=== PATIENT | male | born 1975 | race African-American/Black ===

== ENCOUNTER 2016-09-13 09:04 | Inpatient (IN) | payer OTHER ==
[2016-09-13 09:47] VITALS: BMI 26.6
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
[2016-09-13] MEDS ORDERED: hydrOXYzine PAMOATE 50 MG CAPSULE (FP) PO PRN (12:13)
[2016-09-13] MEDS ORDERED: chlordiazePOXIDE HCL 25 MG CAPSULE PO PRN (12:13)
[2016-09-13] MEDS ORDERED: NICOTINE POLACRILEX 2 MG GUM BUC PRN (12:13)
[2016-09-13] MEDS ORDERED: MAGNESIUM CITRATE 300 ML BOTTLE PO PRN (12:13)
[2016-09-13] MEDS ORDERED: MAGNESIUM HYDROX 2400MG/30ML ORAL SUSPENSION 30 ML CUP PO PRN (12:13)
[2016-09-13] MEDS ORDERED: MENTHOL/PHENOL 1 EACH UD MM PRN (12:13)
[2016-09-13] MEDS ORDERED: IBUPROFEN 400 MG TABLET (FP) PO PRN (12:13)
[2016-09-13] MEDS ORDERED: guaiFENesin/D-METHORPHAN HB 10 ML UNIT-DOSE CUPS PO PRN (12:13)
[2016-09-13] MEDS ORDERED: ACETAMINOPHEN 325 MG TABLET (FP) PO PRN (12:13)
[2016-09-13] MEDS ORDERED: MAG HYDROX/AL HYDROX/SIMETH 30 ML UNIT-DOSE CUP PO PRN (12:13)
[2016-09-13] MEDS ORDERED: P-EPHED 60MG/TRIPROLIDI 2.5MG TABLET PO PRN (12:13)
[2016-09-13] MEDS ORDERED: LOPERAMIDE HCL 2 MG CAPSULE PO PRN (12:13)
[2016-09-13] MEDS ORDERED: chlordiazePOXIDE HCL 25 MG CAPSULE PO ONE (12:20)
[2016-09-13] MEDS: NICOTINE 21 MG/24 HOURS TOPICAL PATCH TD SCH (13:00)
--- NOTE | 2016-09-13 17:15 | EKG ---
Test Reason : Blood Pressure : / mmHG Vent. Rate : 069 BPM Atrial Rate : 069 BPM P-R Int : 160 ms QRS Dur : 088 ms QT Int : 434 ms P-R-T Axes : 030 004 024 degrees QTc Int : 465 ms NORMAL SINUS RHYTHM MODERATE VOLTAGE CRITERIA FOR LVH, MAY BE NORMAL VARIANT ST ELEVATION, CONSIDER EARLY REPOLARIZATION, PERICARDITIS, OR INJURY NONSPECIFIC T WAVE ABNORMALITY PROLONGED QT ABNORMAL ECG NO PREVIOUS ECGS AVAILABLE Confirmed by ALVARO TODD, CHANO ([id number]) on 09/13/2016 5:15:38 PM Referred By: Jeremy Carrera Confirmed By:CHANO JOHN MD
[2016-09-13] MEDS: chlordiazePOXIDE HCL 25 MG CAPSULE PO SCH ×2 (17:31→22:53)
[2016-09-13 18:49] LABS: URINE APPEARANCE CLEAR; URINE BILIRUBIN NEGATIVE (NEGATIVE); URINE BLOOD NEGATIVE (NEGATIVE); URINE COLOR YELLOW; URINE GLUCOSE (UA) NEGATIVE (NEGATIVE); URINE KETONE NEGATIVE (NEGATIVE); URINE LEUK ESTERASE NEGATIVE (NEGATIVE); URINE NITRITE NEGATIVE (NEGATIVE); URINE UROBILINOGEN NEGATIVE E.U./dl (0.2-1.0)
[2016-09-13 19:03] LABS: URINE PROTEIN 1+ (NEGATIVE)
[2016-09-13 20:03] LABS: URINE BACTERIA RARE /hpf (NONE SEEN); URINE MUCUS RARE; URINE RBC 1 /hpf (0-3); URINE WBC 1 /hpf (3-5)
[2016-09-13] MEDS: THIAMINE HCL 100 MG TABLET (FP) PO SCH (22:53)
[2016-09-13] MEDS: diphenhydrAMINE HCL 50 MG CAPSULE PO PRN (22:54)
[2016-09-14] MEDS: chlordiazePOXIDE HCL 25 MG CAPSULE PO SCH ×4 (05:37→23:00)
--- NOTE | 2016-09-14 09:17 | PN ---
S CIWA - CIWA Score Nausea/Vomitin-No Nausea/No Vomiting Muscle Tremors: 4-Moderate,w/Arms Extend Anxiety: 4-Mod. Anxious/Guarded Agitation: 3 Paroxysmal Sweats: 3 Orientation: 0-Oriented Tacttile Disturbances: 0-None Auditory Disturbances: 0-None Visual Disturbances: 0-None Headache: 0-None Present CIWA-Ar Total Score: 14 BHS Progress Note (SOAP) Subjective: Sweating,interrupted sleep,anxiety,tremors,restless. Objective: 09/14/16 09:17 Vital Signs - 8 hr 09/14/16 09/14/16 03:30 06:46 Temperature 96.7 F L Pulse Rate 72 Respiratory 18 18 Rate Blood Pressure 112/77 Laboratory Tests 09/13/16 18:00 Urine Color Yellow Urine Appearance Clear Urine pH 5.0 Ur Specific [place] 1.019 Urine Protein 1+ H Urine Glucose (UA) Negative Urine Ketones Negative Urine Blood Negative Urine Nitrite Negative Urine Bilirubin Negative Urine Urobilinogen Negative Ur Leukocyte Esterase Negative Urine RBC 1 Urine WBC 1 Ur Epithelial Cells Rare Urine Bacteria Rare Urine Mucus Rare Assessment: 09/14/16 09:17 Withdrawal sx. Plan: Continue detox
--- NOTE | 2016-09-14 09:55 | CONSULT ---
[facility] Psychiatric Consult - Data Date of interview: 09/14/16 Admission source: [facility]
[2016-09-14 10:18] LABS: MCH 29.6 pg (25.7-33.7); MCHC 32.7 g/dl (32.0-35.9); MEAN CELL VOLUME 90.7 fl (80-96); MEAN PLT VOLUME 12.4 fl (7.5-11.1); RDW 17.5 % (11.9-15.9); WHITE BLOOD COUNT 6.3 K/mm3 (4.0-10.0)
[2016-09-14] MEDS: PRENATAL VITAMINS W/ FOLIC ACID TABLET (FP) PO SCH (10:44)
[2016-09-14] MEDS: NICOTINE 21 MG/24 HOURS TOPICAL PATCH TD SCH (10:44)
[2016-09-14 10:52] LABS: PLATELET COMMENT2 NO CLUMPING NOTED; PLATELET COUNT 170 K/MM3 (134-434); PLATELET ESTIMATE ADEQUATE (NORMAL)
[2016-09-14 12:03] LABS: ALBUMIN 3.6 g/dl (3.4-5.0); ALK PHOS 121 U/L (45-117); ANION GAP 11 (8-16); BILIRUBIN,TOTAL 0.4 mg/dL (0.2-1.0); CALCIUM 8.9 mg/dL (8.5-10.1); CO2 25 mmol/L (21-32); CREATININE 1.1 mg/dL (0.7-1.3); GLUCOSE,RANDOM 88 mg/dL (74-106); SGOT/AST 32 U/L (15-37); SGPT/ALT 46 U/L (12-78); TOT PROT 8.6 g/dl (6.4-8.2)
[2016-09-14] MEDS: THIAMINE HCL 100 MG TABLET (FP) PO SCH (23:00)
[2016-09-14] MEDS: diphenhydrAMINE HCL 50 MG CAPSULE PO PRN (23:01)
[2016-09-15] MEDS: chlordiazePOXIDE HCL 25 MG CAPSULE PO SCH ×2 (05:30→10:38)
--- NOTE | 2016-09-15 10:00 | PN ---
S CIWA - CIWA Score Nausea/Vomitin-No Nausea/No Vomiting Muscle Tremors: 3 Anxiety: 3 Agitation: 4-Moderately Restless Paroxysmal Sweats: 3 Orientation: 0-Oriented Tacttile Disturbances: 0-None Auditory Disturbances: 0-None Visual Disturbances: 0-None Headache: 0-None Present CIWA-Ar Total Score: 13 BHS Progress Note (SOAP) Subjective: Sweating,interrupted sleep,restless,tremors,anxiety. Objective: 09/15/16 09:59 Vital Signs - 8 hr 09/15/16 09/15/16 09/15/16 03:30 06:35 09:57 Temperature 96.9 F L 98.1 F Pulse Rate 72 69 Respiratory 18 18 18 Rate Blood Pressure 139/102 134/91 Laboratory Tests 09/13/16 09/14/16 09/14/16 18:00 06:00 06:00 WBC 6.3 D RBC 4.49 Hgb 13.3 Hct 40.7 MCV 90.7 MCHC 32.7 RDW 17.5 H Plt Count 170 D MPV 12.4 H Platelet Estimate Adequate Platelet Comment No clumping noted Sodium 142 Potassium 4.1 Chloride 106 Carbon Dioxide 25 Anion Gap 11 BUN 8 D Creatinine 1.1 Creat Clearance w eGFR > 60 Random Glucose 88 Calcium 8.9 Total Bilirubin 0.4 D AST 32 ALT 46 Alkaline Phosphatase 121 H D Total Protein 8.6 H D Albumin 3.6 Urine Color Yellow Urine Appearance Clear Urine pH 5.0 Ur Specific [place] 1.019 Urine Protein 1+ H Urine Glucose (UA) Negative Urine Ketones Negative Urine Blood Negative Urine Nitrite Negative Urine Bilirubin Negative Urine Urobilinogen Negative Ur Leukocyte Esterase Negative Urine RBC 1 Urine WBC 1 Ur Epithelial Cells Rare Urine Bacteria Rare Urine Mucus Rare RPR Titer 09/14/16 06:00 WBC RBC Hgb Hct MCV MCHC RDW Plt Count MPV Platelet Estimate Platelet Comment Sodium Potassium Chloride Carbon Dioxide Anion Gap BUN Creatinine Creat Clearance w eGFR Random Glucose Calcium Total Bilirubin AST ALT Alkaline Phosphatase Total Protein Albumin Urine Color Urine Appearance Urine pH Ur Specific [place] Urine Protein Urine Glucose (UA) Urine Ketones Urine Blood Urine Nitrite Urine Bilirubin Urine Urobilinogen Ur Leukocyte Esterase Urine RBC Urine WBC Ur Epithelial Cells Urine Bacteria Urine Mucus RPR Titer Nonreactive labs noted Assessment: 09/15/16 10:00 Withdrawal sx. Plan: Continue detox
[2016-09-15] MEDS: PRENATAL VITAMINS W/ FOLIC ACID TABLET (FP) PO SCH (10:38)
[2016-09-15] MEDS: NICOTINE 21 MG/24 HOURS TOPICAL PATCH TD SCH (10:38)
[2016-09-15] MEDS ORDERED: chlordiazePOXIDE 5 MG CAPSULE PO SCH (17:00)
[2016-09-15 19:25] VITALS: BP 143/98; PULSE 81; TEMP 98.7
--- NOTE | 2016-09-16 08:37 | DS ---
[facility] Detox Discharge Summary Admission Date: 09/13/16 Discharge Date: 09/15/16 - History Present History: Alcohol Dependence, Cocaine Dependence Pertinent Past History: HIV disease - Physical Exam Results Vital Signs: Vital Signs Temperature 98.7 F 09/15/16 19:24 Pulse Rate 81 09/15/16 19:24 Respiratory Rate 19 09/15/16 19:24 Blood Pressure 143/98 09/15/16 19:24 O2 Sat by Pulse Oximetry (%) Pertinent Admission Physical Exam Findings: Withdrawal sx. Laboratory Last Values WBC 6.3 K/mm3 (4.0-10.0) D 09/14/16 06:00 RBC 4.49 M/mm3 (4.00-5.60) 09/14/16 06:00 Hgb 13.3 GM/dL (11.7-16.9) 09/14/16 06:00 Hct 40.7 % (35.4-49) 09/14/16 06:00 MCV 90.7 fl (80-96) 09/14/16 06:00 MCHC 32.7 g/dl (32.0-35.9) 09/14/16 06:00 RDW 17.5 % (11.9-15.9) H 09/14/16 06:00 Plt Count 170 K/MM3 (134-434) D 09/14/16 06:00 MPV 12.4 fl (7.5-11.1) H 09/14/16 06:00 Platelet Estimate Adequate (NORMAL) 09/14/16 06:00 Platelet Comment Few giant plts 09/14/16 06:00 Platelet Comment No clumping noted 09/14/16 06:00 Sodium 142 mmol/L (136-145) 09/14/16 06:00 Potassium 4.1 mmol/L (3.5-5.1) 09/14/16 06:00 Chloride 106 mmol/L (98-107) 09/14/16 06:00 Carbon Dioxide 25 mmol/L (21-32) 09/14/16 06:00 Anion Gap 11 (8-16) 09/14/16 06:00 BUN 8 mg/dL (7-18) D 09/14/16 06:00 Creatinine 1.1 mg/dL (0.7-1.3) 09/14/16 06:00 Creat Clearance w eGFR > 60 (>60) 09/14/16 06:00 Random Glucose 88 mg/dL (74-106) 09/14/16 06:00 Calcium 8.9 mg/dL (8.5-10.1) 09/14/16 06:00 Total Bilirubin 0.4 mg/dL (0.2-1.0) D 09/14/16 06:00 AST 32 U/L (15-37) 09/14/16 06:00 ALT 46 U/L (12-78) 09/14/16 06:00 Alkaline Phosphatase 121 U/L (45-117) H D 09/14/16 06:00 Total Protein 8.6 g/dl (6.4-8.2) H D 09/14/16 06:00 Albumin 3.6 g/dl (3.4-5.0) 09/14/16 06:00 Urine Color Yellow 09/13/16 18:00 Urine Appearance Clear 09/13/16 18:00 Urine pH 5.0 (5.0-8.0) 09/13/16 18:00 Ur Specific [place] 1.019 (1.001-1.035) 09/13/16 18:00 Urine Protein 1+ (NEGATIVE) H 09/13/16 18:00 Urine Glucose (UA) Negative (NEGATIVE) 09/13/16 18:00 Urine Ketones Negative (NEGATIVE) 09/13/16 18:00 Urine Blood Negative (NEGATIVE) 09/13/16 18:00 Urine Nitrite Negative (NEGATIVE) 09/13/16 18:00 Urine Bilirubin Negative (NEGATIVE) 09/13/16 18:00 Urine Urobilinogen Negative E.U./dl (0.2-1.0) 09/13/16 18:00 Ur Leukocyte Esterase Negative (NEGATIVE) 09/13/16 18:00 Urine RBC 1 /hpf (0-3) 09/13/16 18:00 Urine WBC 1 /hpf (3-5) 09/13/16 18:00 Ur Epithelial Cells Rare /hpf (FEW) 09/13/16 18:00 Urine Bacteria Rare /hpf (NONE SEEN) 09/13/16 18:00 Urine Mucus Rare 09/13/16 18:00 RPR Titer Nonreactive (NONREACTIVE) 09/14/16 06:00 labs noted - Treatment Patient has Accepted a Rehab Referral to: [facility] - Medication Discharge Medications: Ambulatory Orders NK [No Known Home Medication] 09/13/16 - Diagnosis (1) Alcohol dependence with uncomplicated withdrawal Status: Acute (2) Cocaine dependence Status: Acute (3) Nicotine dependence Status: Chronic Qualifiers: Nicotine product type: cigarettes Substance use status: uncomplicated Qualified Code(s): F17.210 - Nicotine dependence, cigarettes, uncomplicated (4) HIV disease Status: Chronic - AMA Did Patient Leave Against Medical Advice: Yes
[2016-09-16] MEDS ORDERED: chlordiazePOXIDE HCL 10 MG CAPSULE PO SCH (17:00)
== END 2016-09-15 19:52 | disposition left against medical advice (07) | DRG 770 ==
LOC: YASAS 09:04 → Y3N 10:55
PROVIDERS: ADMIT Internal Medicine; ATTEND Internal Medicine
PROC: HZ2ZZZZ Detoxification Services for Substance Abuse Treatment (ICD-10-PCS; principal; 2016-09-15)
DX: F10.230 Alcohol dependence with withdrawal, uncomplicated (principal); F14.20 Cocaine dependence, uncomplicated; F17.210 Nicotine dependence, cigarettes, uncomplicated; Z21 Asymptomatic human immunodeficiency virus [HIV] infection status
CPT/HCPCS: 36415; 80053; 81003; 81015; 85027; 86593; 93005; 93010

== ENCOUNTER 2020-11-28 13:03 | Inpatient (IN) | payer OTHER ==
[2020-11-28 14:10] VITALS: BMI 26.9
[2020-11-28] MEDS ORDERED: MAG HYDROX/AL HYDROX/SIMETH 30 ML UNIT-DOSE CUP PO PRN (15:42)
[2020-11-28] MEDS ORDERED: diazePAM 5 MG TABLET PO PRN (15:42)
[2020-11-28] MEDS ORDERED: ONDANSETRON *ODT* 4 MG TABLET SL PRN (15:42)
[2020-11-28] MEDS ORDERED: MENTHOL/PHENOL 1 EACH UD MM PRN (15:42)
[2020-11-28] MEDS ORDERED: BISMUTH SUBSALICYLATE 524 MG/30 ML PO PRN (15:42)
[2020-11-28] MEDS ORDERED: ACETAMINOPHEN 325 MG TABLET (FP) PO PRN ×2 (15:42)
[2020-11-28] MEDS ORDERED: METHOCARBAMOL 500 MG TABLET PO PRN (15:42)
[2020-11-28] MEDS ORDERED: MAGNESIUM CITRATE 300 ML BOTTLE PO PRN (15:42)
[2020-11-28] MEDS ORDERED: NICOTINE POLACRILEX 2 MG GUM BUC PRN (15:42)
[2020-11-28] MEDS ORDERED: MAGNESIUM HYDROX 2400MG/30ML ORAL SUSPENSION 30 ML CUP PO PRN (15:42)
[2020-11-28] MEDS ORDERED: IBUPROFEN 400 MG TABLET (FP) PO PRN (15:42)
[2020-11-28] MEDS: PRENATAL VITAMINS W/ FOLIC ACID TABLET (FP) PO SCH (17:52)
[2020-11-28] MEDS: hydrOXYzine PAMOATE 25 MG CAPSULE (FP) PO SCH ×2 (17:52→22:38)
[2020-11-28] MEDS: NICOTINE 21 MG/24 HOURS TOPICAL PATCH TD SCH (17:52)
[2020-11-28] MEDS: diazePAM 5 MG TABLET PO SCH ×2 (17:53→22:40)
[2020-11-28] MEDS: VITAMINS A AND D TOPICAL OINTMENT 60 GM TUBE TP SCH (18:36)
[2020-11-28] MEDS: QUEtiapine FUMARATE 50 MG TABLET PO SCH (22:38)
[2020-11-28] MEDS: MELATONIN 5 MG TABLETS PO SCH (22:38)
[2020-11-28] MEDS: THIAMINE HCL 100 MG TABLET (FP) PO SCH (22:39)
[2020-11-29] MEDS: VITAMINS A AND D TOPICAL OINTMENT 60 GM TUBE TP SCH ×5 (00:48→23:39)
[2020-11-29] MEDS: hydrOXYzine PAMOATE 25 MG CAPSULE (FP) PO SCH ×2 (05:48→10:32)
[2020-11-29] MEDS: diazePAM 5 MG TABLET PO SCH ×4 (05:49→23:05)
[2020-11-29] MEDS: NICOTINE 21 MG/24 HOURS TOPICAL PATCH TD SCH (10:31)
[2020-11-29] MEDS: PRENATAL VITAMINS W/ FOLIC ACID TABLET (FP) PO SCH (10:32)
[2020-11-29] MEDS: amLODIPine BESYLATE 5 MG TABLET (FP) PO SCH (10:32)
[2020-11-29] MEDS ORDERED: hydrOXYzine PAMOATE 25 MG CAPSULE (FP) PO PRN (11:15)
[2020-11-29 11:37] LABS: HEMATOCRIT 32.6 % (35.4-49); HEMOGLOBIN 11.1 GM/dL (11.7-16.9); MCH 31.3 pg (25.7-33.7); MCHC 34.1 g/dl (32.0-35.9); MEAN CELL VOLUME 91.8 fl (80-96); MEAN PLT VOLUME 11.4 fl (7.5-11.1); PLATELET COUNT 57 K/MM3 (134-434); RBC 3.55 M/mm3 (4.00-5.60); RDW 15.8 % (11.9-15.9); WHITE BLOOD COUNT 2.6 K/mm3 (4.0-10.0)
[2020-11-29 11:42] LABS: BLOOD UREA NITROGEN 18.2 mg/dL (7-18); CALCIUM 8.3 mg/dL (8.5-10.1)
[2020-11-29 11:43] LABS: BILIRUBIN,TOTAL 0.8 mg/dL (0.2-1); CREATININE 1.1 mg/dL (0.55-1.3); TOT PROT 7.3 g/dl (6.4-8.2)
[2020-11-29] MEDS ORDERED: POTASSIUM CHLORIDE TABS 20 MEQ TABLET.ER (FP) PO ONE (14:05)
[2020-11-29] MEDS: QUEtiapine FUMARATE 50 MG TABLET PO SCH (23:04)
[2020-11-29] MEDS: THIAMINE HCL 100 MG TABLET (FP) PO SCH (23:05)
[2020-11-29] MEDS: MELATONIN 5 MG TABLETS PO SCH (23:05)
[2020-11-30] MEDS: diazePAM 5 MG TABLET PO SCH ×3 (06:28→22:40)
[2020-11-30] MEDS: VITAMINS A AND D TOPICAL OINTMENT 60 GM TUBE TP SCH ×4 (06:29→23:52)
[2020-11-30] MEDS: PRENATAL VITAMINS W/ FOLIC ACID TABLET (FP) PO SCH (09:48)
[2020-11-30] MEDS: NICOTINE 21 MG/24 HOURS TOPICAL PATCH TD SCH (09:48)
[2020-11-30] MEDS: amLODIPine BESYLATE 5 MG TABLET (FP) PO SCH (09:48)
[2020-11-30] MEDS: QUEtiapine FUMARATE 50 MG TABLET PO SCH (22:40)
[2020-11-30] MEDS: MELATONIN 5 MG TABLETS PO SCH (22:40)
[2020-11-30] MEDS: THIAMINE HCL 100 MG TABLET (FP) PO SCH (22:40)
[2020-12-01] MEDS: diazePAM 5 MG TABLET PO SCH ×2 (05:39→17:47)
[2020-12-01] MEDS: VITAMINS A AND D TOPICAL OINTMENT 60 GM TUBE TP SCH ×4 (05:40→23:14)
[2020-12-01 09:53] LABS: HEMATOCRIT 30.4 % (35.4-49); HEMOGLOBIN 10.4 GM/dL (11.7-16.9); MCHC 34.2 g/dl (32.0-35.9); MEAN CELL VOLUME 90.7 fl (80-96); MEAN PLT VOLUME 11.3 fl (7.5-11.1); PLATELET COUNT 46 K/MM3 (134-434); RBC 3.35 M/mm3 (4.00-5.60); RDW 15.3 % (11.9-15.9); WHITE BLOOD COUNT 2.6 K/mm3 (4.0-10.0)
[2020-12-01 09:57] LABS: CALCIUM 8.7 mg/dL (8.5-10.1)
[2020-12-01 09:58] LABS: BLOOD UREA NITROGEN 15.5 mg/dL (7-18)
[2020-12-01 10:01] LABS: BILIRUBIN,TOTAL 0.5 mg/dL (0.2-1); TOT PROT 7.2 g/dl (6.4-8.2)
[2020-12-01] MEDS: NICOTINE 21 MG/24 HOURS TOPICAL PATCH TD SCH (10:06)
[2020-12-01] MEDS: amLODIPine BESYLATE 5 MG TABLET (FP) PO SCH (10:07)
[2020-12-01] MEDS: PRENATAL VITAMINS W/ FOLIC ACID TABLET (FP) PO SCH (10:07)
[2020-12-01 18:21] VITALS: TEMP 97.1
[2020-12-01] MEDS: THIAMINE HCL 100 MG TABLET (FP) PO SCH (22:21)
[2020-12-01] MEDS: QUEtiapine FUMARATE 50 MG TABLET PO SCH (22:21)
[2020-12-01] MEDS: MELATONIN 5 MG TABLETS PO SCH (22:21)
[2020-12-01 22:26] VITALS: BP 136/87; PULSE 103
[2020-12-02] MEDS ORDERED: diazePAM 5 MG TABLET PO ONE (06:00)
[2020-12-02] MEDS: VITAMINS A AND D TOPICAL OINTMENT 60 GM TUBE TP SCH (06:55)
== END 2020-12-02 07:10 | disposition home or self-care (01) | DRG 774 ==
LOC: YASAS 13:03 → Y3N 16:42
PROVIDERS: ADMIT Allergy & Immunology; ATTEND Allergy & Immunology
PROC: HZ2ZZZZ Detoxification Services for Substance Abuse Treatment (ICD-10-PCS; principal; 2020-11-28)
DX: F10.230 Alcohol dependence with withdrawal, uncomplicated (principal); F14.20 Cocaine dependence, uncomplicated; F17.210 Nicotine dependence, cigarettes, uncomplicated; F41.8 Other specified anxiety disorders; F51.02 Adjustment insomnia; B20 Human immunodeficiency virus [HIV] disease; D69.6 Thrombocytopenia, unspecified; D72.819 Decreased white blood cell count, unspecified; I10 Essential (primary) hypertension; K21.9 Gastro-esophageal reflux disease without esophagitis; M41.84 Other forms of scoliosis, thoracic region
CPT/HCPCS: 36415; 80053; 85027; 86780; C9803; U0003; U0005

== ENCOUNTER 2022-01-20 11:22 | Inpatient (IN) | payer OTHER ==
[2022-01-20 13:10] VITALS: BMI 26.6
[2022-01-20] MEDS ORDERED: BENZOCAINE/MENTHOL (CHLORASEPTIC ) LOZENGE MM PRN (14:11)
[2022-01-20] MEDS ORDERED: IBUPROFEN 400 MG TABLET (FP) PO PRN (14:11)
[2022-01-20] MEDS ORDERED: ONDANSETRON *ODT* 4 MG TABLET SL PRN (14:11)
[2022-01-20] MEDS ORDERED: DICYCLOMINE HCL 10 MG CAPSULE PO PRN (14:11)
[2022-01-20] MEDS ORDERED: MAG HYDROX/AL HYDROX/SIMETH 30 ML UNIT-DOSE CUP PO PRN (14:11)
[2022-01-20] MEDS ORDERED: MAGNESIUM CITRATE 300 ML BOTTLE PO PRN (14:11)
[2022-01-20] MEDS ORDERED: METHOCARBAMOL 500 MG TABLET PO PRN (14:11)
[2022-01-20] MEDS ORDERED: MAGNESIUM HYDROX 2400MG/30ML ORAL SUSPENSION 30 ML CUP PO PRN (14:11)
[2022-01-20] MEDS ORDERED: IBUPROFEN 600 MG TABLET (FP) PO PRN (14:11)
[2022-01-20] MEDS ORDERED: NICOTINE 10 MG CARTRIDGE (INHALER) IH PRN (14:11)
[2022-01-20] MEDS ORDERED: LOPERAMIDE HCL 2 MG CAPSULE PO PRN (14:11)
[2022-01-20] MEDS ORDERED: ACETAMINOPHEN 325 MG TABLET (FP) PO PRN ×2 (14:11)
[2022-01-20] MEDS ORDERED: BISMUTH SUBSALICYLATE 524 MG/30 ML PO PRN (14:11)
[2022-01-20] MEDS ORDERED: HYDROCORTISONE 1% TOPICAL OINT 30 GM TUBE TP PRN (14:13)
[2022-01-20] MEDS ORDERED: MINERAL OIL/PETROLAT/WATER TOPICAL CREAM 454 GM JAR TP PRN (14:22)
[2022-01-20] MEDS ORDERED: COLLOIDAL OATMEAL 1 BAR EACH TP PRN (14:22)
[2022-01-20] MEDS ORDERED: LIDOCAINE 5% TOPICAL PATCH TP PRN (14:23)
[2022-01-20] MEDS: hydrOXYzine PAMOATE 25 MG CAPSULE (FP) PO SCH (17:57)
[2022-01-20 21:03] VITALS: RESP 18
[2022-01-20] MEDS: MELATONIN 5 MG TABLETS PO SCH (23:05)
[2022-01-21] MEDS: LIDOCAINE PATCH REMOVAL MC SCH ×2 (04:58→22:45)
[2022-01-21] MEDS: VITAMINS A AND D TOPICAL OINTMENT 60 GM TUBE TP SCH ×4 (04:58→18:03)
[2022-01-21] MEDS: THIAMINE HCL 100 MG TABLET (FP) PO SCH ×2 (04:59→22:45)
[2022-01-21] MEDS: hydrOXYzine PAMOATE 25 MG CAPSULE (FP) PO SCH ×6 (04:59→22:45)
[2022-01-21 09:22] LABS: HEMATOCRIT 29.4 % (35.4-49); HEMOGLOBIN 10.2 GM/dL (11.7-16.9); MCH 30.3 pg (25.7-33.7); MCHC 34.5 g/dl (32.0-35.9); MEAN CELL VOLUME 87.8 fl (80-96); MEAN PLT VOLUME 12.4 fl (7.5-11.1); PLATELET COUNT 51 10^3/uL (134-434); RBC 3.35 M/mm3 (4.00-5.60); RDW 19.8 % (11.9-15.9)
[2022-01-21 09:28] LABS: ALBUMIN 3.1 g/dl (3.4-5.0); CALCIUM 8.4 mg/dL (8.5-10.1)
[2022-01-21 09:30] LABS: CREATININE 1.1 mg/dL (0.55-1.3)
[2022-01-21 09:31] LABS: WHITE BLOOD COUNT 1.9 K/mm3 (4.0-10.0)
[2022-01-21 09:32] LABS: BILIRUBIN,TOTAL 0.4 mg/dL (0.2-1)
[2022-01-21 09:33] LABS: TOT PROT 7.2 g/dl (6.4-8.2)
[2022-01-21] MEDS ORDERED: ABACAVIR/DOLUTEGRAVIR/LAMIVUDI (TRIUMEQ) TABLET -NF PO SCH (10:00)
[2022-01-21] MEDS: PRENATAL VITAMINS W/ FOLIC ACID TABLET (FP) PO SCH (10:48)
[2022-01-21] MEDS ORDERED: chlordiazePOXIDE HCL 25 MG CAPSULE PO PRN (12:21)
[2022-01-21] MEDS: amLODIPine BESYLATE 5 MG TABLET (FP) PO SCH (12:41)
[2022-01-21] MEDS: HYDROCORTISONE 1% TOPICAL OINT 30 GM TUBE TP SCH ×2 (12:45→22:45)
[2022-01-21] MEDS: chlordiazePOXIDE HCL 25 MG CAPSULE PO SCH ×2 (17:59→22:46)
[2022-01-21] MEDS: CALCIUM CARBONATE 650 MG TABLET PO SCH (22:44)
[2022-01-21] MEDS: MELATONIN 5 MG TABLETS PO SCH (22:45)
[2022-01-22] MEDS: VITAMINS A AND D TOPICAL OINTMENT 60 GM TUBE TP SCH ×4 (05:14→18:13)
[2022-01-22] MEDS: chlordiazePOXIDE HCL 25 MG CAPSULE PO SCH ×4 (05:14→22:31)
[2022-01-22] MEDS: hydrOXYzine PAMOATE 25 MG CAPSULE (FP) PO SCH ×5 (05:15→22:34)
[2022-01-22 09:52] LABS: HEMATOCRIT 30.4 % (35.4-49); HEMOGLOBIN 10.2 GM/dL (11.7-16.9); MCH 29.9 pg (25.7-33.7); MCHC 33.6 g/dl (32.0-35.9); MEAN PLT VOLUME 12.7 fl (7.5-11.1); PLATELET COUNT 57 10^3/uL (134-434); RBC 3.41 M/mm3 (4.00-5.60); RDW 19.9 % (11.9-15.9); WHITE BLOOD COUNT 2.2 K/mm3 (4.0-10.0)
[2022-01-22] MEDS: PRENATAL VITAMINS W/ FOLIC ACID TABLET (FP) PO SCH (10:12)
[2022-01-22] MEDS: amLODIPine BESYLATE 5 MG TABLET (FP) PO SCH (10:12)
[2022-01-22] MEDS: CALCIUM CARBONATE 650 MG TABLET PO SCH ×2 (10:12→22:33)
[2022-01-22] MEDS: ABACAVIR/DOLUTEGRAVIR/LAMIVUDI (TRIUMEQ) TABLET -NF PO SCH (10:13)
[2022-01-22] MEDS: HYDROCORTISONE 1% TOPICAL OINT 30 GM TUBE TP SCH ×2 (10:15→22:30)
[2022-01-22 10:21] LABS: ANISOCYTOSIS 1+; MACROCYTOSIS 1+
[2022-01-22] MEDS: FERROUS SO4 325 MG TABLET (FP) PO SCH ×2 (12:26→17:47)
[2022-01-22] MEDS ORDERED: SULFAMETHOXAZOLE/TRIMETHOPRIM 800MG/160MG D.S. TABLET PO SCH (14:14)
[2022-01-22] MEDS: MELATONIN 5 MG TABLETS PO SCH (22:34)
[2022-01-22] MEDS: LIDOCAINE PATCH REMOVAL MC SCH (22:34)
[2022-01-22] MEDS: THIAMINE HCL 100 MG TABLET (FP) PO SCH (22:35)
[2022-01-23] MEDS: VITAMINS A AND D TOPICAL OINTMENT 60 GM TUBE TP SCH ×4 (00:55→17:38)
[2022-01-23] MEDS: hydrOXYzine PAMOATE 25 MG CAPSULE (FP) PO SCH ×5 (05:29→22:55)
[2022-01-23] MEDS: chlordiazePOXIDE HCL 25 MG CAPSULE PO SCH ×4 (05:29→22:56)
[2022-01-23] MEDS: PRENATAL VITAMINS W/ FOLIC ACID TABLET (FP) PO SCH (10:26)
[2022-01-23] MEDS: CALCIUM CARBONATE 650 MG TABLET PO SCH ×2 (10:27→22:55)
[2022-01-23] MEDS: FERROUS SO4 325 MG TABLET (FP) PO SCH ×3 (10:27→17:36)
[2022-01-23] MEDS: amLODIPine BESYLATE 5 MG TABLET (FP) PO SCH (10:27)
[2022-01-23] MEDS: HYDROCORTISONE 1% TOPICAL OINT 30 GM TUBE TP SCH ×2 (10:28→22:55)
[2022-01-23] MEDS: ABACAVIR/DOLUTEGRAVIR/LAMIVUDI (TRIUMEQ) TABLET -NF PO SCH (10:28)
[2022-01-23] MEDS: LIDOCAINE PATCH REMOVAL MC SCH (21:55)
[2022-01-23] MEDS: THIAMINE HCL 100 MG TABLET (FP) PO SCH (22:55)
[2022-01-23] MEDS: MELATONIN 5 MG TABLETS PO SCH (22:55)
[2022-01-24] MEDS ORDERED: chlordiazePOXIDE HCL 10 MG CAPSULE PO PRN
[2022-01-24] MEDS: VITAMINS A AND D TOPICAL OINTMENT 60 GM TUBE TP SCH ×2 (01:28→06:31)
[2022-01-24] MEDS ORDERED: chlordiazePOXIDE HCL 10 MG CAPSULE PO SCH (05:00)
[2022-01-24] MEDS: hydrOXYzine PAMOATE 25 MG CAPSULE (FP) PO SCH (05:21)
[2022-01-24 08:57] VITALS: BP 124/82; PULSE 95; TEMP 98
[2022-01-25] MEDS ORDERED: chlordiazePOXIDE HCL 10 MG CAPSULE PO SCH (05:00)
[2022-01-26] MEDS ORDERED: chlordiazePOXIDE HCL 10 MG CAPSULE PO ONE (05:00)
== END 2022-01-24 10:02 | disposition home or self-care (01) | DRG 774 ==
LOC: YASAS 11:22 → Y3N 15:23
PROVIDERS: ADMIT Allergy & Immunology; ATTEND Surgery
PROC: HZ2ZZZZ Detoxification Services for Substance Abuse Treatment (ICD-10-PCS; principal; 2022-01-20)
DX: F10.230 Alcohol dependence with withdrawal, uncomplicated (principal); F14.20 Cocaine dependence, uncomplicated; F17.210 Nicotine dependence, cigarettes, uncomplicated; I10 Essential (primary) hypertension; D64.9 Anemia, unspecified; L40.9 Psoriasis, unspecified; Z21 Asymptomatic human immunodeficiency virus [HIV] infection status; R63.4 Abnormal weight loss; M41.34 Thoracogenic scoliosis, thoracic region; E83.51 Hypocalcemia; D61.818 Other pancytopenia; R77.0 Abnormality of albumin; K21.9 Gastro-esophageal reflux disease without esophagitis; Z91.013 Allergy to seafood
CPT/HCPCS: 36415; 80053; 82607; 82728; 82746; 83540; 83550; 85025; 85027; 86780; 87811; 93005; 93010; C9803-CS; U0003; U0005

== ENCOUNTER 2022-05-05 12:37 | Inpatient (IN) | payer OTHER ==
[2022-05-05 13:04] VITALS: BMI 23.9
[2022-05-05] MEDS ORDERED: MAG HYDROX/AL HYDROX/SIMETH 30 ML UNIT-DOSE CUP PO PRN (13:29)
[2022-05-05] MEDS ORDERED: ONDANSETRON *ODT* 4 MG TABLET SL PRN (13:29)
[2022-05-05] MEDS ORDERED: DICYCLOMINE HCL 10 MG CAPSULE PO PRN (13:29)
[2022-05-05] MEDS ORDERED: LORazepam 1 MG TABLET PO PRN (13:29)
[2022-05-05] MEDS ORDERED: BISMUTH SUBSALICYLATE 524 MG/30 ML PO PRN (13:29)
[2022-05-05] MEDS ORDERED: IBUPROFEN 600 MG TABLET (FP) PO PRN (13:29)
[2022-05-05] MEDS ORDERED: NICOTINE 10 MG CARTRIDGE (INHALER) IH PRN (13:29)
[2022-05-05] MEDS ORDERED: NALOXONE HCL (KLOXXADO) 8 MG SPRAY NS PRN (13:29)
[2022-05-05] MEDS ORDERED: MAGNESIUM HYDROX 2400MG/30ML ORAL SUSPENSION 30 ML CUP PO PRN (13:29)
[2022-05-05] MEDS ORDERED: BENZOCAINE/MENTHOL (CHLORASEPTIC ) LOZENGE MM PRN (13:29)
[2022-05-05] MEDS ORDERED: IBUPROFEN 400 MG TABLET (FP) PO PRN (13:29)
[2022-05-05] MEDS ORDERED: LOPERAMIDE HCL 2 MG CAPSULE PO PRN (13:29)
[2022-05-05] MEDS ORDERED: ACETAMINOPHEN 325 MG TABLET (FP) PO PRN ×2 (13:29)
[2022-05-05] MEDS ORDERED: LORazepam 2 MG TABLET PO ONE (13:29)
[2022-05-05] MEDS ORDERED: amLODIPine BESYLATE 5 MG TABLET (FP) PO SCH (13:45)
[2022-05-05] MEDS: ABACAVIR/DOLUTEGRAVIR/LAMIVUDI (TRIUMEQ) TABLET -NF PO SCH (13:45)
[2022-05-05] MEDS: SULFAMETHOXAZOLE/TRIMETHOPRIM 800MG/160MG D.S. TABLET PO SCH (14:00)
[2022-05-05] MEDS: METHOCARBAMOL 500 MG TABLET PO PRN (17:37)
[2022-05-05] MEDS: FERROUS SO4 325 MG TABLET (FP) PO SCH (17:37)
[2022-05-05] MEDS: hydrOXYzine PAMOATE 25 MG CAPSULE (FP) PO PRN ×2 (17:37→23:04)
[2022-05-05] MEDS: LORazepam 2 MG TABLET PO SCH ×2 (17:38→23:04)
[2022-05-05] MEDS: DOXYCYCLINE HYCLATE 100 MG CAPSULE PO SCH (20:04)
[2022-05-05] MEDS: THIAMINE HCL 100 MG TABLET (FP) PO SCH (23:04)
[2022-05-05] MEDS: MELATONIN 5 MG TABLETS PO SCH (23:04)
[2022-05-06] MEDS: LORazepam 2 MG TABLET PO SCH ×4 (05:57→22:47)
[2022-05-06] MEDS: FERROUS SO4 325 MG TABLET (FP) PO SCH ×3 (08:05→17:27)
[2022-05-06] MEDS: DOXYCYCLINE HYCLATE 100 MG CAPSULE PO SCH ×2 (10:13→19:38)
[2022-05-06] MEDS: METHOCARBAMOL 500 MG TABLET PO PRN (10:13)
[2022-05-06] MEDS: PRENATAL VITAMINS W/ FOLIC ACID TABLET (FP) PO SCH (10:14)
[2022-05-06] MEDS: amLODIPine BESYLATE 5 MG TABLET (FP) PO SCH (10:14)
[2022-05-06 12:19] LABS: ALBUMIN 2.9 g/dl (3.4-5.0); BLOOD UREA NITROGEN 24.8 mg/dL (7-18); CALCIUM 8.4 mg/dL (8.5-10.1)
[2022-05-06 12:22] LABS: CREATININE 1.1 mg/dL (0.55-1.3)
[2022-05-06 12:24] LABS: BILIRUBIN,TOTAL 0.4 mg/dL (0.2-1); TOT PROT 7.6 g/dl (6.4-8.2)
[2022-05-06 12:29] LABS: HEMATOCRIT 37.3 % (35.4-49); HEMOGLOBIN 12.7 GM/dL (11.7-16.9); MCH 29.6 pg (25.7-33.7); MCHC 33.9 g/dl (32.0-35.9); MEAN CELL VOLUME 87.3 fl (80-96); MEAN PLT VOLUME 12.4 fl (7.5-11.1); PLATELET COUNT 66 10^3/uL (134-434); RBC 4.28 M/mm3 (4.00-5.60); RDW 15.3 % (11.9-15.9); WHITE BLOOD COUNT 3.2 K/mm3 (4.0-10.0)
[2022-05-06] MEDS: ABACAVIR/DOLUTEGRAVIR/LAMIVUDI (TRIUMEQ) TABLET -NF PO SCH (12:38)
[2022-05-06] MEDS: THIAMINE HCL 100 MG TABLET (FP) PO SCH (22:46)
[2022-05-06] MEDS: MELATONIN 5 MG TABLETS PO SCH (22:46)
[2022-05-07] MEDS: LORazepam 1 MG TABLET PO SCH ×4 (06:00→22:37)
[2022-05-07] MEDS: FERROUS SO4 325 MG TABLET (FP) PO SCH ×3 (10:17→17:29)
[2022-05-07] MEDS: amLODIPine BESYLATE 5 MG TABLET (FP) PO SCH (10:19)
[2022-05-07] MEDS: DOXYCYCLINE HYCLATE 100 MG CAPSULE PO SCH ×2 (10:19→17:36)
[2022-05-07] MEDS: hydrOXYzine PAMOATE 25 MG CAPSULE (FP) PO PRN (10:19)
[2022-05-07] MEDS: PRENATAL VITAMINS W/ FOLIC ACID TABLET (FP) PO SCH (10:19)
[2022-05-07] MEDS: ABACAVIR/DOLUTEGRAVIR/LAMIVUDI (TRIUMEQ) TABLET -NF PO SCH (11:55)
[2022-05-07] MEDS: SULFAMETHOXAZOLE/TRIMETHOPRIM 800MG/160MG D.S. TABLET PO SCH (13:47)
[2022-05-07] MEDS: MELATONIN 5 MG TABLETS PO SCH (22:37)
[2022-05-07] MEDS: THIAMINE HCL 100 MG TABLET (FP) PO SCH (22:37)
[2022-05-08] MEDS ORDERED: LORazepam 0.5 MG TABLET PO PRN
[2022-05-08] MEDS: LORazepam 0.5 MG TABLET PO SCH ×4 (05:55→22:07)
[2022-05-08] MEDS: ABACAVIR/DOLUTEGRAVIR/LAMIVUDI (TRIUMEQ) TABLET -NF PO SCH (10:25)
[2022-05-08] MEDS: hydrOXYzine PAMOATE 25 MG CAPSULE (FP) PO PRN ×2 (10:25→22:10)
[2022-05-08] MEDS: FERROUS SO4 325 MG TABLET (FP) PO SCH ×3 (10:25→17:52)
[2022-05-08] MEDS: PRENATAL VITAMINS W/ FOLIC ACID TABLET (FP) PO SCH (10:25)
[2022-05-08] MEDS: amLODIPine BESYLATE 5 MG TABLET (FP) PO SCH (10:25)
[2022-05-08] MEDS: DOXYCYCLINE HYCLATE 100 MG CAPSULE PO SCH ×2 (10:26→17:56)
[2022-05-08] MEDS: MELATONIN 5 MG TABLETS PO SCH (22:07)
[2022-05-08] MEDS: THIAMINE HCL 100 MG TABLET (FP) PO SCH (22:08)
[2022-05-09] MEDS ORDERED: LORazepam 0.5 MG TABLET PO ONE (05:00)
[2022-05-09] MEDS: FERROUS SO4 325 MG TABLET (FP) PO SCH ×3 (07:53→16:41)
[2022-05-09] MEDS: PRENATAL VITAMINS W/ FOLIC ACID TABLET (FP) PO SCH (10:10)
[2022-05-09] MEDS: DOXYCYCLINE HYCLATE 100 MG CAPSULE PO SCH ×2 (10:10→17:26)
[2022-05-09] MEDS: ABACAVIR/DOLUTEGRAVIR/LAMIVUDI (TRIUMEQ) TABLET -NF PO SCH (10:10)
[2022-05-09] MEDS: amLODIPine BESYLATE 5 MG TABLET (FP) PO SCH (10:10)
[2022-05-09 12:50] VITALS: RESP 18
[2022-05-09] MEDS: SULFAMETHOXAZOLE/TRIMETHOPRIM 800MG/160MG D.S. TABLET PO SCH (13:10)
[2022-05-09 17:20] VITALS: BP 117/75; PULSE 76; TEMP 97.3
== END 2022-05-09 17:15 | disposition other institution (70) | DRG 774 ==
LOC: YASAS 12:37 → Y6N 13:40
PROVIDERS: ADMIT Allergy & Immunology; ATTEND Surgery
PROC: HZ2ZZZZ Detoxification Services for Substance Abuse Treatment (ICD-10-PCS; principal; 2022-05-05)
DX: F10.230 Alcohol dependence with withdrawal, uncomplicated (principal); F14.20 Cocaine dependence, uncomplicated; F17.210 Nicotine dependence, cigarettes, uncomplicated; F41.8 Other specified anxiety disorders; B20 Human immunodeficiency virus [HIV] disease; D69.6 Thrombocytopenia, unspecified; M41.84 Other forms of scoliosis, thoracic region; D64.9 Anemia, unspecified; L30.9 Dermatitis, unspecified; R36.0 Urethral discharge without blood; R63.4 Abnormal weight loss; Z68.23 Body mass index [BMI] 23.0-23.9, adult
CPT/HCPCS: 36415; 80053; 85027; 86780; 87491; 87591; 87661; C9803-CS; U0003; U0005

== ENCOUNTER 2022-05-09 17:22 | Inpatient (IN) | payer OTHER ==
[2022-05-09] MEDS ORDERED: P-EPHED 60MG/TRIPROLIDI 2.5MG TABLET PO PRN (17:59)
[2022-05-09] MEDS ORDERED: LOPERAMIDE HCL 2 MG CAPSULE PO PRN (17:59)
[2022-05-09] MEDS ORDERED: MAGNESIUM CITRATE 300 ML BOTTLE PO PRN (17:59)
[2022-05-09] MEDS ORDERED: IBUPROFEN 400 MG TABLET (FP) PO PRN (17:59)
[2022-05-09] MEDS ORDERED: BENZOCAINE/MENTHOL (CHLORASEPTIC ) LOZENGE MM PRN (17:59)
[2022-05-09] MEDS ORDERED: MAG HYDROX/AL HYDROX/SIMETH 30 ML UNIT-DOSE CUP PO PRN (17:59)
[2022-05-09] MEDS ORDERED: guaiFENesin 200 MG/10 ML 10 ML UNIT-DOSE CUPS PO PRN (17:59)
[2022-05-09] MEDS ORDERED: MAGNESIUM HYDROX 2400MG/30ML ORAL SUSPENSION 30 ML CUP PO PRN (17:59)
[2022-05-09] MEDS ORDERED: ACETAMINOPHEN 325 MG TABLET (FP) PO PRN (17:59)
[2022-05-09] MEDS: MELATONIN 5 MG TABLETS PO SCH (23:48)
[2022-05-09] MEDS: THIAMINE HCL 100 MG TABLET (FP) PO SCH (23:48)
[2022-05-10] MEDS: FERROUS SO4 325 MG TABLET (FP) PO SCH ×3 (07:59→21:37)
[2022-05-10] MEDS: NICOTINE 10 MG CARTRIDGE (INHALER) IH PRN (09:36)
[2022-05-10] MEDS: NICOTINE 7 MG/24 HOURS TOPICAL PATCH TD SCH (09:37)
[2022-05-10] MEDS: amLODIPine BESYLATE 5 MG TABLET (FP) PO SCH (09:37)
[2022-05-10] MEDS: ABACAVIR/DOLUTEGRAVIR/LAMIVUDI (TRIUMEQ) TABLET -NF PO SCH (09:37)
[2022-05-10] MEDS: PRENATAL VITAMINS W/ FOLIC ACID TABLET (FP) PO SCH (09:37)
[2022-05-10] MEDS: DOXYCYCLINE HYCLATE 100 MG CAPSULE PO SCH ×2 (09:38→21:37)
[2022-05-10] MEDS: VITAMINS A AND D TOPICAL OINTMENT 60 GM TUBE TP SCH ×2 (13:00→18:30)
[2022-05-10] MEDS: COLLOIDAL OATMEAL 1 BAR EACH TP PRN (14:22)
[2022-05-10] MEDS: MELATONIN 5 MG TABLETS PO SCH (21:36)
[2022-05-10] MEDS: THIAMINE HCL 100 MG TABLET (FP) PO SCH (21:36)
[2022-05-10] MEDS: hydrOXYzine PAMOATE 25 MG CAPSULE (FP) PO PRN (21:37)
[2022-05-11] MEDS: VITAMINS A AND D TOPICAL OINTMENT 60 GM TUBE TP SCH ×4 (00:35→18:25)
[2022-05-11] MEDS: NICOTINE 10 MG CARTRIDGE (INHALER) IH PRN ×3 (06:45→21:10)
[2022-05-11] MEDS: FERROUS SO4 325 MG TABLET (FP) PO SCH ×3 (07:07→17:30)
[2022-05-11] MEDS: PRENATAL VITAMINS W/ FOLIC ACID TABLET (FP) PO SCH (09:43)
[2022-05-11] MEDS: amLODIPine BESYLATE 5 MG TABLET (FP) PO SCH (09:43)
[2022-05-11] MEDS: NICOTINE 7 MG/24 HOURS TOPICAL PATCH TD SCH (09:43)
[2022-05-11] MEDS: SULFAMETHOXAZOLE/TRIMETHOPRIM 800MG/160MG D.S. TABLET PO SCH (09:43)
[2022-05-11] MEDS: ABACAVIR/DOLUTEGRAVIR/LAMIVUDI (TRIUMEQ) TABLET -NF PO SCH (09:44)
[2022-05-11] MEDS: DOXYCYCLINE HYCLATE 100 MG CAPSULE PO SCH (09:44)
[2022-05-11] MEDS: MELATONIN 5 MG TABLETS PO SCH (21:09)
[2022-05-11] MEDS: THIAMINE HCL 100 MG TABLET (FP) PO SCH (21:09)
[2022-05-12] MEDS: VITAMINS A AND D TOPICAL OINTMENT 60 GM TUBE TP SCH ×4 (00:30→17:40)
[2022-05-12] MEDS: NICOTINE 10 MG CARTRIDGE (INHALER) IH PRN ×2 (06:53→21:56)
[2022-05-12] MEDS: FERROUS SO4 325 MG TABLET (FP) PO SCH ×3 (08:01→17:40)
[2022-05-12] MEDS: amLODIPine BESYLATE 5 MG TABLET (FP) PO SCH (09:26)
[2022-05-12] MEDS: NICOTINE 7 MG/24 HOURS TOPICAL PATCH TD SCH (09:27)
[2022-05-12] MEDS: PRENATAL VITAMINS W/ FOLIC ACID TABLET (FP) PO SCH (09:27)
[2022-05-12] MEDS: ABACAVIR/DOLUTEGRAVIR/LAMIVUDI (TRIUMEQ) TABLET -NF PO SCH (09:27)
[2022-05-12] MEDS: MELATONIN 5 MG TABLETS PO SCH (21:54)
[2022-05-12] MEDS: THIAMINE HCL 100 MG TABLET (FP) PO SCH (21:54)
[2022-05-12] MEDS: hydrOXYzine PAMOATE 25 MG CAPSULE (FP) PO PRN (21:54)
[2022-05-13] MEDS: VITAMINS A AND D TOPICAL OINTMENT 60 GM TUBE TP SCH ×4 (00:30→18:44)
[2022-05-13] MEDS: NICOTINE 10 MG CARTRIDGE (INHALER) IH PRN (06:14)
[2022-05-13] MEDS: FERROUS SO4 325 MG TABLET (FP) PO SCH ×3 (07:05→17:43)
[2022-05-13] MEDS: amLODIPine BESYLATE 5 MG TABLET (FP) PO SCH (10:00)
[2022-05-13] MEDS: NICOTINE 7 MG/24 HOURS TOPICAL PATCH TD SCH (10:00)
[2022-05-13] MEDS: PRENATAL VITAMINS W/ FOLIC ACID TABLET (FP) PO SCH (10:00)
[2022-05-13] MEDS: ABACAVIR/DOLUTEGRAVIR/LAMIVUDI (TRIUMEQ) TABLET -NF PO SCH (10:00)
[2022-05-13] MEDS: MELATONIN 5 MG TABLETS PO SCH (21:40)
[2022-05-13] MEDS: hydrOXYzine PAMOATE 25 MG CAPSULE (FP) PO PRN (21:40)
[2022-05-13] MEDS: THIAMINE HCL 100 MG TABLET (FP) PO SCH (21:40)
[2022-05-14] MEDS: VITAMINS A AND D TOPICAL OINTMENT 60 GM TUBE TP SCH ×3 (00:29→13:53)
[2022-05-14] MEDS: FERROUS SO4 325 MG TABLET (FP) PO SCH ×3 (07:03→17:45)
[2022-05-14] MEDS: amLODIPine BESYLATE 5 MG TABLET (FP) PO SCH (09:41)
[2022-05-14] MEDS: SULFAMETHOXAZOLE/TRIMETHOPRIM 800MG/160MG D.S. TABLET PO SCH (09:41)
[2022-05-14] MEDS: PRENATAL VITAMINS W/ FOLIC ACID TABLET (FP) PO SCH (09:41)
[2022-05-14] MEDS: NICOTINE 7 MG/24 HOURS TOPICAL PATCH TD SCH (09:42)
[2022-05-14] MEDS: ABACAVIR/DOLUTEGRAVIR/LAMIVUDI (TRIUMEQ) TABLET -NF PO SCH (10:06)
[2022-05-14] MEDS ORDERED: NICOTINE 7 MG/24 HOURS TOPICAL PATCH TD PRN (11:55)
[2022-05-14] MEDS ORDERED: VITAMINS A AND D TOPICAL OINTMENT 60 GM TUBE TP PRN (12:04)
[2022-05-14] MEDS: THIAMINE HCL 100 MG TABLET (FP) PO SCH (21:28)
[2022-05-14] MEDS: MELATONIN 5 MG TABLETS PO SCH (21:28)
[2022-05-14] MEDS: hydrOXYzine PAMOATE 25 MG CAPSULE (FP) PO PRN (21:28)
[2022-05-15] MEDS: FERROUS SO4 325 MG TABLET (FP) PO SCH ×3 (07:34→16:40)
[2022-05-15] MEDS: ABACAVIR/DOLUTEGRAVIR/LAMIVUDI (TRIUMEQ) TABLET -NF PO SCH (09:40)
[2022-05-15] MEDS: amLODIPine BESYLATE 5 MG TABLET (FP) PO SCH (09:40)
[2022-05-15] MEDS: NICOTINE 10 MG CARTRIDGE (INHALER) IH PRN (12:03)
[2022-05-15] MEDS: THIAMINE HCL 100 MG TABLET (FP) PO SCH (21:07)
[2022-05-15] MEDS: MELATONIN 5 MG TABLETS PO SCH (21:07)
[2022-05-16] MEDS: NICOTINE 10 MG CARTRIDGE (INHALER) IH PRN ×3 (06:41→19:23)
[2022-05-16] MEDS: FERROUS SO4 325 MG TABLET (FP) PO SCH ×3 (07:40→19:24)
[2022-05-16] MEDS: SULFAMETHOXAZOLE/TRIMETHOPRIM 800MG/160MG D.S. TABLET PO SCH (09:58)
[2022-05-16] MEDS: amLODIPine BESYLATE 5 MG TABLET (FP) PO SCH (09:59)
[2022-05-16] MEDS: ABACAVIR/DOLUTEGRAVIR/LAMIVUDI (TRIUMEQ) TABLET -NF PO SCH (09:59)
[2022-05-16] MEDS: PRENATAL VITAMINS W/ FOLIC ACID TABLET (FP) PO PRN (09:59)
[2022-05-16] MEDS: THIAMINE HCL 100 MG TABLET (FP) PO SCH (21:20)
[2022-05-16] MEDS: MELATONIN 5 MG TABLETS PO SCH (21:20)
[2022-05-17] MEDS: FERROUS SO4 325 MG TABLET (FP) PO SCH ×3 (07:13→17:05)
[2022-05-17] MEDS: COLLOIDAL OATMEAL 1 BAR EACH TP PRN (09:46)
[2022-05-17] MEDS: amLODIPine BESYLATE 5 MG TABLET (FP) PO SCH (09:46)
[2022-05-17] MEDS: PRENATAL VITAMINS W/ FOLIC ACID TABLET (FP) PO PRN (09:46)
[2022-05-17] MEDS: ABACAVIR/DOLUTEGRAVIR/LAMIVUDI (TRIUMEQ) TABLET -NF PO SCH (09:47)
[2022-05-17] MEDS: NICOTINE 10 MG CARTRIDGE (INHALER) IH PRN (10:45)
[2022-05-17] MEDS: MELATONIN 5 MG TABLETS PO SCH (21:41)
[2022-05-17] MEDS: THIAMINE HCL 100 MG TABLET (FP) PO SCH (21:41)
[2022-05-18] MEDS: FERROUS SO4 325 MG TABLET (FP) PO SCH ×3 (07:27→17:40)
[2022-05-18] MEDS: SULFAMETHOXAZOLE/TRIMETHOPRIM 800MG/160MG D.S. TABLET PO SCH (10:06)
[2022-05-18] MEDS: amLODIPine BESYLATE 5 MG TABLET (FP) PO SCH (10:07)
[2022-05-18] MEDS: PRENATAL VITAMINS W/ FOLIC ACID TABLET (FP) PO PRN (10:07)
[2022-05-18] MEDS: ABACAVIR/DOLUTEGRAVIR/LAMIVUDI (TRIUMEQ) TABLET -NF PO SCH (10:07)
[2022-05-18] MEDS: MELATONIN 5 MG TABLETS PO SCH (21:38)
[2022-05-18] MEDS: hydrOXYzine PAMOATE 25 MG CAPSULE (FP) PO PRN (21:38)
[2022-05-18] MEDS: THIAMINE HCL 100 MG TABLET (FP) PO SCH (21:38)
[2022-05-19] MEDS: NICOTINE 10 MG CARTRIDGE (INHALER) IH PRN (06:13)
[2022-05-19] MEDS: FERROUS SO4 325 MG TABLET (FP) PO SCH ×3 (07:15→17:45)
[2022-05-19] MEDS: ABACAVIR/DOLUTEGRAVIR/LAMIVUDI (TRIUMEQ) TABLET -NF PO SCH (09:35)
[2022-05-19] MEDS: amLODIPine BESYLATE 5 MG TABLET (FP) PO SCH (09:35)
[2022-05-19] MEDS: THIAMINE HCL 100 MG TABLET (FP) PO SCH (21:29)
[2022-05-19] MEDS: hydrOXYzine PAMOATE 25 MG CAPSULE (FP) PO PRN (21:29)
[2022-05-19] MEDS: MELATONIN 5 MG TABLETS PO SCH (21:30)
[2022-05-20] MEDS: FERROUS SO4 325 MG TABLET (FP) PO SCH ×3 (07:04→17:30)
[2022-05-20 08:13] VITALS: RESP 18
[2022-05-20] MEDS: amLODIPine BESYLATE 5 MG TABLET (FP) PO SCH (10:25)
[2022-05-20] MEDS: ABACAVIR/DOLUTEGRAVIR/LAMIVUDI (TRIUMEQ) TABLET -NF PO SCH (10:27)
[2022-05-20] MEDS: MELATONIN 5 MG TABLETS PO SCH (21:23)
[2022-05-20] MEDS: hydrOXYzine PAMOATE 25 MG CAPSULE (FP) PO PRN (21:23)
[2022-05-20] MEDS: THIAMINE HCL 100 MG TABLET (FP) PO SCH (21:23)
[2022-05-21] MEDS: FERROUS SO4 325 MG TABLET (FP) PO SCH ×3 (07:16→17:40)
[2022-05-21] MEDS: SULFAMETHOXAZOLE/TRIMETHOPRIM 800MG/160MG D.S. TABLET PO SCH (10:18)
[2022-05-21] MEDS: amLODIPine BESYLATE 5 MG TABLET (FP) PO SCH (10:19)
[2022-05-21] MEDS: ABACAVIR/DOLUTEGRAVIR/LAMIVUDI (TRIUMEQ) TABLET -NF PO SCH (10:19)
[2022-05-21] MEDS: COLLOIDAL OATMEAL 1 BAR EACH TP PRN (13:04)
[2022-05-21] MEDS: MELATONIN 5 MG TABLETS PO SCH (21:04)
[2022-05-21] MEDS: THIAMINE HCL 100 MG TABLET (FP) PO SCH (21:04)
[2022-05-21] MEDS: hydrOXYzine PAMOATE 25 MG CAPSULE (FP) PO PRN (21:04)
[2022-05-22] MEDS: NICOTINE 10 MG CARTRIDGE (INHALER) IH PRN (06:23)
[2022-05-22 07:05] VITALS: TEMP 97.5
[2022-05-22] MEDS: FERROUS SO4 325 MG TABLET (FP) PO SCH (07:07)
[2022-05-22 08:52] VITALS: BP 121/76; PULSE 96
[2022-05-22] MEDS: PRENATAL VITAMINS W/ FOLIC ACID TABLET (FP) PO PRN (09:09)
[2022-05-22] MEDS: amLODIPine BESYLATE 5 MG TABLET (FP) PO SCH (09:09)
[2022-05-22] MEDS: ABACAVIR/DOLUTEGRAVIR/LAMIVUDI (TRIUMEQ) TABLET -NF PO SCH (09:09)
== END 2022-05-22 09:15 | disposition home or self-care (01) | DRG 772 ==
LOC: YASAS 17:22 → Y3E 17:24
PROVIDERS: ADMIT Allergy & Immunology; ATTEND Psychiatry & Neurology Pain Medicine
PROC: HZ42ZZZ Group Counseling for Substance Abuse Treatment, Cognitive-Behavioral (ICD-10-PCS; principal; 2022-05-09)
DX: F10.20 Alcohol dependence, uncomplicated (principal); F14.20 Cocaine dependence, uncomplicated; F17.210 Nicotine dependence, cigarettes, uncomplicated; F41.8 Other specified anxiety disorders; F32.A Depression, unspecified; F51.02 Adjustment insomnia; B20 Human immunodeficiency virus [HIV] disease; I10 Essential (primary) hypertension; K21.9 Gastro-esophageal reflux disease without esophagitis; L40.9 Psoriasis, unspecified; M41.9 Scoliosis, unspecified; M54.50 Low back pain, unspecified; G89.29 Other chronic pain; R63.4 Abnormal weight loss; Z68.24 Body mass index [BMI] 24.0-24.9, adult; Z56.0 Unemployment, unspecified

== ENCOUNTER 2022-09-23 08:46 | Inpatient (IN) | payer OTHER ==
[2022-09-23] MEDS ORDERED: BISMUTH SUBSALICYLATE 524 MG/30 ML PO PRN (10:47)
[2022-09-23] MEDS ORDERED: NALOXONE HCL 0.4 MG/ML VIAL IM PRN (10:47)
[2022-09-23] MEDS ORDERED: NALOXONE HCL (KLOXXADO) 8 MG SPRAY NS PRN (10:47)
[2022-09-23] MEDS ORDERED: DICYCLOMINE HCL 10 MG CAPSULE PO PRN (10:47)
[2022-09-23] MEDS ORDERED: BENZONATATE 200 MG CAPSULE PO PRN (10:47)
[2022-09-23] MEDS ORDERED: ONDANSETRON *ODT* 4 MG TABLET SL PRN (10:47)
[2022-09-23] MEDS ORDERED: guaiFENesin 600 MG TABLET.ER (FP) PO PRN (10:47)
[2022-09-23] MEDS ORDERED: LOPERAMIDE HCL 2 MG CAPSULE PO PRN (10:47)
[2022-09-23] MEDS ORDERED: MAG HYDROX/AL HYDROX/SIMETH 30 ML UNIT-DOSE CUP PO PRN (10:47)
[2022-09-23] MEDS ORDERED: hydrOXYzine PAMOATE 25 MG CAPSULE (FP) PO PRN (10:47)
[2022-09-23] MEDS ORDERED: NICOTINE 10 MG CARTRIDGE (INHALER) IH PRN (10:47)
[2022-09-23] MEDS ORDERED: METHOCARBAMOL 500 MG TABLET PO PRN (10:47)
[2022-09-23] MEDS ORDERED: chlordiazePOXIDE HCL 25 MG CAPSULE PO PRN (10:47)
[2022-09-23] MEDS ORDERED: POLYETHYLENE GLYCOL (HEALTHYLAX) 3350 17 GM PACKET PO PRN (10:47)
[2022-09-23] MEDS ORDERED: IBUPROFEN 400 MG TABLET (FP) PO PRN (10:47)
[2022-09-23] MEDS ORDERED: IBUPROFEN 600 MG TABLET (FP) PO PRN (10:47)
[2022-09-23] MEDS ORDERED: MAGNESIUM HYDROX 2400MG/30ML ORAL SUSPENSION 30 ML CUP PO PRN (10:47)
[2022-09-23] MEDS ORDERED: ACETAMINOPHEN 325 MG TABLET (FP) PO PRN (10:47)
[2022-09-23 10:49] VITALS: BMI 21.1
[2022-09-23] MEDS ORDERED: chlordiazePOXIDE HCL 25 MG CAPSULE ONE (11:18)
[2022-09-23] MEDS: chlordiazePOXIDE HCL 25 MG CAPSULE PO SCH ×3 (11:21→22:06)
[2022-09-23] MEDS: FERROUS SO4 325 MG TABLET (FP) PO SCH ×2 (11:53→17:40)
[2022-09-23] MEDS: MELATONIN 5 MG TABLETS PO SCH (22:05)
[2022-09-23] MEDS: THIAMINE HCL 100 MG TABLET (FP) PO SCH (22:06)
[2022-09-23] MEDS: SULFAMETHOXAZOLE/TRIMETHOPRIM 800MG/160MG D.S. TABLET PO SCH (22:06)
[2022-09-24] MEDS: chlordiazePOXIDE HCL 25 MG CAPSULE PO SCH ×4 (05:37→22:47)
[2022-09-24] MEDS: FERROUS SO4 325 MG TABLET (FP) PO SCH ×3 (08:21→17:52)
[2022-09-24] MEDS: PRENATAL VITAMINS W/ FOLIC ACID TABLET (FP) PO SCH (10:37)
[2022-09-24] MEDS: SULFAMETHOXAZOLE/TRIMETHOPRIM 800MG/160MG D.S. TABLET PO SCH ×2 (10:37→22:47)
[2022-09-24] MEDS ORDERED: SULFAMETHOXAZOLE/TRIMETHOPRIM 800MG/160MG D.S. TABLET PO SCH (10:51)
[2022-09-24 11:24] LABS: HEMOGLOBIN 7.4 GM/dL (11.7-16.9); MCH 28.2 pg (25.7-33.7); MCHC 33.6 g/dl (32.0-35.9); MEAN CELL VOLUME 83.9 fl (80-96); MEAN PLT VOLUME 12.2 fl (7.5-11.1); PLATELET COUNT 104 10^3/uL (134-434); RBC 2.62 M/mm3 (4.00-5.60); RDW 16.8 % (11.9-15.9); WHITE BLOOD COUNT 2.2 K/mm3 (4.0-10.0)
[2022-09-24 11:28] LABS: CALCIUM 7.9 mg/dL (8.5-10.1)
[2022-09-24 11:29] LABS: ALBUMIN 1.8 g/dl (3.4-5.0); BLOOD UREA NITROGEN 24.6 mg/dL (7-18)
[2022-09-24 11:31] LABS: CREATININE 1.1 mg/dL (0.55-1.3)
[2022-09-24 11:33] LABS: BILIRUBIN,TOTAL 0.3 mg/dL (0.2-1)
[2022-09-24] MEDS: THIAMINE HCL 100 MG TABLET (FP) PO SCH (22:47)
[2022-09-24] MEDS: BENZOCAINE/MENTHOL (CHLORASEPTIC ) LOZENGE MM PRN (22:49)
[2022-09-24] MEDS: MELATONIN 5 MG TABLETS PO SCH (22:59)
[2022-09-25] MEDS: chlordiazePOXIDE HCL 25 MG CAPSULE PO SCH ×4 (04:41→22:36)
[2022-09-25] MEDS: BENZOCAINE/MENTHOL (CHLORASEPTIC ) LOZENGE MM PRN ×3 (04:44→17:38)
[2022-09-25] MEDS: FERROUS SO4 325 MG TABLET (FP) PO SCH ×3 (07:26→17:36)
[2022-09-25] MEDS: PRENATAL VITAMINS W/ FOLIC ACID TABLET (FP) PO SCH (10:33)
[2022-09-25] MEDS: SULFAMETHOXAZOLE/TRIMETHOPRIM 800MG/160MG D.S. TABLET PO SCH ×2 (10:33→22:36)
[2022-09-25] MEDS: POTASSIUM CHLORIDE TABS 20 MEQ TABLET.ER (FP) PO SCH (11:23)
[2022-09-25] MEDS: ABACAVIR/DOLUTEGRAVIR/LAMIVUDI (TRIUMEQ) TABLET PO SCH (11:24)
[2022-09-25] MEDS: THIAMINE HCL 100 MG TABLET (FP) PO SCH (22:36)
[2022-09-25] MEDS: MELATONIN 5 MG TABLETS PO SCH (23:15)
[2022-09-26] MEDS ORDERED: chlordiazePOXIDE HCL 10 MG CAPSULE PO PRN
[2022-09-26] MEDS: chlordiazePOXIDE HCL 10 MG CAPSULE PO SCH ×4 (05:55→23:36)
[2022-09-26] MEDS: ABACAVIR/DOLUTEGRAVIR/LAMIVUDI (TRIUMEQ) TABLET PO SCH (08:01)
[2022-09-26] MEDS: FERROUS SO4 325 MG TABLET (FP) PO SCH ×3 (08:01→17:53)
[2022-09-26] MEDS: POTASSIUM CHLORIDE TABS 20 MEQ TABLET.ER (FP) PO SCH (10:25)
[2022-09-26] MEDS: SULFAMETHOXAZOLE/TRIMETHOPRIM 800MG/160MG D.S. TABLET PO SCH ×2 (10:25→22:58)
[2022-09-26] MEDS: PRENATAL VITAMINS W/ FOLIC ACID TABLET (FP) PO SCH (10:25)
[2022-09-26] MEDS: BENZOCAINE/MENTHOL (CHLORASEPTIC ) LOZENGE MM PRN ×2 (11:27→19:26)
[2022-09-26] MEDS: THIAMINE HCL 100 MG TABLET (FP) PO SCH (22:58)
[2022-09-26] MEDS: MELATONIN 5 MG TABLETS PO SCH (23:37)
[2022-09-27] MEDS: chlordiazePOXIDE HCL 10 MG CAPSULE PO SCH ×2 (05:49→17:29)
[2022-09-27] MEDS: ABACAVIR/DOLUTEGRAVIR/LAMIVUDI (TRIUMEQ) TABLET PO SCH (07:10)
[2022-09-27] MEDS: FERROUS SO4 325 MG TABLET (FP) PO SCH ×3 (07:10→17:29)
[2022-09-27] MEDS: PRENATAL VITAMINS W/ FOLIC ACID TABLET (FP) PO SCH (10:57)
[2022-09-27] MEDS: SULFAMETHOXAZOLE/TRIMETHOPRIM 800MG/160MG D.S. TABLET PO SCH ×2 (10:57→22:28)
[2022-09-27] MEDS: POTASSIUM CHLORIDE TABS 20 MEQ TABLET.ER (FP) PO SCH (10:57)
[2022-09-27] MEDS: THIAMINE HCL 100 MG TABLET (FP) PO SCH (22:28)
[2022-09-27] MEDS: MELATONIN 5 MG TABLETS PO SCH (22:29)
[2022-09-28] MEDS ORDERED: chlordiazePOXIDE HCL 10 MG CAPSULE PO ONE (05:00)
[2022-09-28] MEDS: ABACAVIR/DOLUTEGRAVIR/LAMIVUDI (TRIUMEQ) TABLET PO SCH (08:05)
[2022-09-28] MEDS: FERROUS SO4 325 MG TABLET (FP) PO SCH ×2 (08:05→11:07)
[2022-09-28 09:23] VITALS: BP 104/66; PULSE 95; RESP 16; TEMP 96.8
[2022-09-28] MEDS: POTASSIUM CHLORIDE TABS 20 MEQ TABLET.ER (FP) PO SCH (11:06)
[2022-09-28] MEDS: PRENATAL VITAMINS W/ FOLIC ACID TABLET (FP) PO SCH (11:06)
[2022-09-28] MEDS: SULFAMETHOXAZOLE/TRIMETHOPRIM 800MG/160MG D.S. TABLET PO SCH (11:07)
== END 2022-09-28 10:50 | disposition other institution (70) | DRG 774 ==
LOC: YASAS 08:46 → Y6N 11:10
PROVIDERS: ADMIT Allergy & Immunology; ATTEND Surgery
PROC: HZ2ZZZZ Detoxification Services for Substance Abuse Treatment (ICD-10-PCS; principal; 2022-09-23)
PROC: HZ2ZZZZ Detoxification Services for Substance Abuse Treatment (ICD-10-PCS; 2022-09-23)
DX: F10.230 Alcohol dependence with withdrawal, uncomplicated (principal); F14.20 Cocaine dependence, uncomplicated; F17.210 Nicotine dependence, cigarettes, uncomplicated; B20 Human immunodeficiency virus [HIV] disease; Z79.899 Other long term (current) drug therapy; H60.513 Acute actinic otitis externa, bilateral; H61.21 Impacted cerumen, right ear; H00.013 Hordeolum externum right eye, unspecified eyelid; I10 Essential (primary) hypertension; K21.9 Gastro-esophageal reflux disease without esophagitis; L40.9 Psoriasis, unspecified; M54.50 Low back pain, unspecified; G89.29 Other chronic pain
CPT/HCPCS: 36415; 71045-TC-FY; 80053; 85027; 86780; 87811; C9803-CS; U0003; U0005

== ENCOUNTER 2023-02-19 19:53 | Inpatient (IN) | payer OTHER ==
[2023-02-19 21:19] VITALS: BMI 22.1
[2023-02-19] MEDS ORDERED: IBUPROFEN 600 MG TABLET (FP) PO PRN (21:29)
[2023-02-19] MEDS ORDERED: LOPERAMIDE HCL 2 MG CAPSULE PO PRN (21:29)
[2023-02-19] MEDS ORDERED: guaiFENesin 600 MG TABLET.ER (FP) PO PRN (21:29)
[2023-02-19] MEDS ORDERED: NICOTINE POLACRILEX 2 MG GUM BUC PRN (21:29)
[2023-02-19] MEDS ORDERED: BISMUTH SUBSALICYLATE 524 MG/30 ML PO PRN (21:29)
[2023-02-19] MEDS ORDERED: METHOCARBAMOL 500 MG TABLET PO PRN (21:29)
[2023-02-19] MEDS ORDERED: MAGNESIUM HYDROX 2400MG/30ML ORAL SUSPENSION 30 ML CUP PO PRN (21:29)
[2023-02-19] MEDS ORDERED: IBUPROFEN 400 MG TABLET (FP) PO PRN (21:29)
[2023-02-19] MEDS ORDERED: DICYCLOMINE HCL 10 MG CAPSULE PO PRN (21:29)
[2023-02-19] MEDS ORDERED: BENZOCAINE/MENTHOL (CHLORASEPTIC ) LOZENGE MM PRN (21:29)
[2023-02-19] MEDS ORDERED: ACETAMINOPHEN 325 MG TABLET (FP) PO PRN (21:29)
[2023-02-19] MEDS ORDERED: NALOXONE HCL (KLOXXADO) 8 MG SPRAY NS PRN (21:29)
[2023-02-19] MEDS ORDERED: cloNIDine HCL 0.1 MG TABLET PO ONE (21:29)
[2023-02-19] MEDS ORDERED: POLYETHYLENE GLYCOL (HEALTHYLAX) 3350 17 GM PACKET PO PRN (21:29)
[2023-02-19] MEDS ORDERED: ONDANSETRON *ODT* 4 MG TABLET SL PRN (21:29)
[2023-02-19] MEDS ORDERED: MAG HYDROX/AL HYDROX/SIMETH 30 ML UNIT-DOSE CUP PO PRN (21:29)
[2023-02-19] MEDS ORDERED: NALOXONE HCL 0.4 MG/ML VIAL IM PRN (21:29)
[2023-02-19] MEDS ORDERED: hydrOXYzine PAMOATE 25 MG CAPSULE (FP) PO PRN (21:29)
[2023-02-19] MEDS ORDERED: cloNIDine HCL 0.1 MG TABLET ONE (22:02)
[2023-02-19] MEDS ORDERED: MELATONIN 5 MG TABLETS ONE (22:02)
[2023-02-19] MEDS: MELATONIN 5 MG TABLETS PO SCH (22:08)
[2023-02-19] MEDS: THIAMINE HCL 100 MG TABLET (FP) PO SCH (22:08)
[2023-02-20] MEDS: NICOTINE 14 MG/24 HOURS TOPICAL PATCH TD SCH (09:41)
[2023-02-20] MEDS: PRENATAL VITAMINS W/ FOLIC ACID TABLET (FP) PO SCH (09:41)
[2023-02-20] MEDS: amLODIPine BESYLATE 5 MG TABLET (FP) PO SCH (09:41)
[2023-02-20 10:12] LABS: POTASSIUM 3.5 mmol/L (3.5-5.1)
[2023-02-20 10:23] LABS: HEMOGLOBIN 7.2 GM/dL (11.7-16.9); MCH 27.6 pg (25.7-33.7); MCHC 32.6 g/dl (32.0-35.9); MEAN CELL VOLUME 84.5 fl (80-96); RDW 16.9 % (11.9-15.9); WHITE BLOOD COUNT 2.6 K/mm3 (4.0-10.0)
[2023-02-20 10:29] LABS: CALCIUM 7.7 mg/dL (8.5-10.1)
[2023-02-20 10:30] LABS: ALBUMIN 2.4 g/dl (3.4-5.0); BLOOD UREA NITROGEN 20.5 mg/dL (7-18)
[2023-02-20 10:33] LABS: CREATININE 1.1 mg/dL (0.55-1.3)
[2023-02-20 10:35] LABS: BILIRUBIN,TOTAL 0.2 mg/dL (0.2-1); TOT PROT 7.2 g/dl (6.4-8.2)
[2023-02-20 10:56] LABS: MEAN PLT VOLUME 9.1 fl (7.5-11.1); PLATELET COUNT 33 10^3/uL (134-434)
[2023-02-20] MEDS: THIAMINE HCL 100 MG TABLET (FP) PO SCH (21:36)
[2023-02-20] MEDS: MELATONIN 5 MG TABLETS PO SCH (21:37)
[2023-02-21] MEDS: BENZONATATE 200 MG CAPSULE PO PRN ×2 (03:26→20:15)
[2023-02-21] MEDS: amLODIPine BESYLATE 5 MG TABLET (FP) PO SCH (10:42)
[2023-02-21] MEDS: PRENATAL VITAMINS W/ FOLIC ACID TABLET (FP) PO SCH (10:42)
[2023-02-21] MEDS: NICOTINE 14 MG/24 HOURS TOPICAL PATCH TD SCH (10:42)
[2023-02-21 17:58] VITALS: RESP 18
[2023-02-21 21:10] VITALS: BP 141/86; PULSE 113; TEMP 98.9
[2023-02-21] MEDS: THIAMINE HCL 100 MG TABLET (FP) PO SCH (23:30)
[2023-02-21] MEDS: MELATONIN 5 MG TABLETS PO SCH (23:30)
== END 2023-02-21 23:58 | disposition short-term general hospital (02) | DRG 774 ==
LOC: YASAS 19:53 → Y3N 21:58
PROVIDERS: ADMIT Allergy & Immunology; ATTEND Surgery
PROC: HZ2ZZZZ Detoxification Services for Substance Abuse Treatment (ICD-10-PCS; principal; 2023-02-19)
DX: F10.20 Alcohol dependence, uncomplicated (principal); F14.20 Cocaine dependence, uncomplicated; F17.210 Nicotine dependence, cigarettes, uncomplicated; B20 Human immunodeficiency virus [HIV] disease; B37.0 Candidal stomatitis; D61.818 Other pancytopenia; I10 Essential (primary) hypertension; K21.9 Gastro-esophageal reflux disease without esophagitis; M41.9 Scoliosis, unspecified; R13.10 Dysphagia, unspecified
CPT/HCPCS: 0241U-QW; 26055; 36415; 71046-TC-FY; 80053; 85027; 86780

== ENCOUNTER 2023-02-21 22:47 | Observation (INO) | payer OTHER ==
[2023-02-21 23:02] VITALS: BMI 22.1
[2023-02-21] MEDS ORDERED: NYSTATIN 500,000 UNITS/5 ML SUSPENSION PO ONE (23:45)
[2023-02-22 00:52] LABS: ACTIVATED PTT 39.9 SECONDS (25.2-36.5); INR 1.02 (0.83-1.09); PROTHROMBIN TIME (PATIENT) 11.8 SEC (9.7-13.0)
[2023-02-22 00:54] LABS: POTASSIUM 3.8 mmol/L (3.5-5.1)
[2023-02-22 00:56] LABS: ALBUMIN 2.5 g/dl (3.4-5.0); BLOOD UREA NITROGEN 21.2 mg/dL (7-18); CALCIUM 7.7 mg/dL (8.5-10.1); MAGNESIUM 1.9 mg/dL (1.8-2.4)
[2023-02-22 01:01] LABS: BILIRUBIN,TOTAL 0.2 mg/dL (0.2-1); TOT PROT 7.8 g/dl (6.4-8.2)
[2023-02-22 01:27] LABS: BASO % 0.9 % (0-2.0); EOS % 9.5 % (0-4.5); HEMATOCRIT 24.1 % (35.4-49); HEMOGLOBIN 7.9 GM/dL (11.7-16.9); LYMPH % 18.8 % (8-40); MCH 27.5 pg (25.7-33.7); MCHC 32.7 g/dl (32.0-35.9); MEAN CELL VOLUME 84.1 fl (80-96); MEAN PLT VOLUME 9.6 fl (7.5-11.1); MONO % 8.8 % (3.8-10.2); PLATELET COUNT 42 10^3/uL (134-434); RBC 2.87 M/mm3 (4.00-5.60); RDW 16.6 % (11.9-15.9); WHITE BLOOD COUNT 3.1 K/mm3 (4.0-10.0)
[2023-02-22 02:01] LABS: PLATELET ESTIMATE DECREASED
[2023-02-22] MEDS ORDERED: LORazepam 2 MG/ML SDV VIAL IVPUSH PRN (05:20)
[2023-02-22 06:03] LABS: BASO % 0.6 % (0-2.0); HEMATOCRIT 23.3 % (35.4-49); HEMOGLOBIN 7.5 GM/dL (11.7-16.9); LYMPH % 20.1 % (8-40); MCH 27.7 pg (25.7-33.7); MCHC 32.4 g/dl (32.0-35.9); MEAN CELL VOLUME 85.4 fl (80-96); MEAN PLT VOLUME 10.3 fl (7.5-11.1); MONO % 10.2 % (3.8-10.2); NEUT % 57.1 % (42.8-82.8); PLATELET COUNT 37 10^3/uL (134-434); RBC 2.72 M/mm3 (4.00-5.60); RDW 16.6 % (11.9-15.9); WHITE BLOOD COUNT 2.4 K/mm3 (4.0-10.0)
[2023-02-22 06:16] LABS: POTASSIUM 3.8 mmol/L (3.5-5.1)
[2023-02-22 06:19] LABS: CALCIUM 7.6 mg/dL (8.5-10.1)
[2023-02-22 06:20] LABS: ALBUMIN 2.3 g/dl (3.4-5.0); MAGNESIUM 1.9 mg/dL (1.8-2.4)
[2023-02-22 06:22] LABS: CREATININE 0.9 mg/dL (0.55-1.3); PHOSPHOROUS 2.9 mg/dL (2.5-4.9)
[2023-02-22 06:23] LABS: BILIRUBIN,TOTAL 0.2 mg/dL (0.2-1); TOT PROT 7.2 g/dl (6.4-8.2)
[2023-02-22] MEDS: NYSTATIN 500,000 UNITS/5 ML SUSPENSION PO SCH ×3 (07:43→17:58)
[2023-02-22] MEDS ORDERED: NICOTINE 14 MG/24 HOURS TOPICAL PATCH TD ONE (09:14)
[2023-02-22] MEDS: NICOTINE 14 MG/24 HOURS TOPICAL PATCH TD SCH (09:25)
[2023-02-22] MEDS: FOLIC ACID 1 MG TABLET (FP) PO SCH (09:25)
[2023-02-22] MEDS: THIAMINE HCL 200 MG/2 ML VIAL IVPB SCH (09:25)
[2023-02-22] MEDS ORDERED: AZITHROMYCIN IVPB 500 MG/250 ML BAG IVPB ONE (12:45)
[2023-02-22 12:47] LABS: PH,URINE 8.5 (5.0-8.0); URINE APPEARANCE CLEAR; URINE BILIRUBIN NEGATIVE (NEGATIVE); URINE COLOR YELLOW; URINE GLUCOSE (UA) NEGATIVE (NEGATIVE); URINE KETONE NEGATIVE (NEGATIVE); URINE NITRITE NEGATIVE (NEGATIVE); URINE PROTEIN 1 (NEGATIVE); URINE UROBILINOGEN 0.2 mg/dL (0.2-1.0)
[2023-02-22 12:48] LABS: EPI CELLS 7 /uL (0-25.1); HYALINE CASTS 0.14 /uL (0-3.1); URINE BACTERIA 12 /uL (0-1359); URINE LEUK ESTERASE NEGATIVE (NEGATIVE); URINE RBC 6 /uL (0-23.9); URINE WBC 8 /uL (0-25.8)
[2023-02-22] MEDS: AZITHROMYCIN IVPB 500 MG/250 ML BAG IVPB SCH (12:53)
[2023-02-22 13:26] LABS: HIV INTERPRETATION PRESUMPTIVE POSITIVE (NEGATIVE)
[2023-02-23] MEDS: NYSTATIN 500,000 UNITS/5 ML SUSPENSION PO SCH ×4 (00:16→18:26)
[2023-02-23 10:10] LABS: BASO % 0.5 % (0-2.0); EOS % 10.2 % (0-4.5); HEMATOCRIT 24.4 % (35.4-49); MCH 27.7 pg (25.7-33.7); MCHC 32.7 g/dl (32.0-35.9); MEAN CELL VOLUME 84.7 fl (80-96); MONO % 7.1 % (3.8-10.2); NEUT % 66.2 % (42.8-82.8); RBC 2.88 M/mm3 (4.00-5.60); RDW 16.8 % (11.9-15.9); WHITE BLOOD COUNT 2.4 K/mm3 (4.0-10.0)
[2023-02-23 10:13] LABS: MEAN PLT VOLUME 11.8 fl (7.5-11.1); PLATELET COUNT 63 10^3/uL (134-434)
[2023-02-23] MEDS: FOLIC ACID 1 MG TABLET (FP) PO SCH (11:59)
[2023-02-23] MEDS: THIAMINE HCL 200 MG/2 ML VIAL IVPB SCH (12:00)
[2023-02-23] MEDS: NICOTINE 14 MG/24 HOURS TOPICAL PATCH TD SCH (12:00)
[2023-02-23] MEDS: AZITHROMYCIN IVPB 500 MG/250 ML BAG IVPB SCH (12:01)
[2023-02-23] MEDS: ATOVAQUONE 750 MG/5 ML (UNIT-DOSE PACKAGING) PO SCH ×2 (12:17→22:52)
[2023-02-24] MEDS: NYSTATIN 500,000 UNITS/5 ML SUSPENSION PO SCH ×5 (00:35→23:01)
[2023-02-24 10:13] LABS: CALCIUM 7.7 mg/dL (8.5-10.1)
[2023-02-24 10:14] LABS: ALBUMIN 2.5 g/dl (3.4-5.0); MAGNESIUM 1.9 mg/dL (1.8-2.4)
[2023-02-24 10:17] LABS: CREATININE 0.9 mg/dL (0.55-1.3)
[2023-02-24 10:19] LABS: BILIRUBIN,TOTAL 0.6 mg/dL (0.2-1); TOT PROT 7.6 g/dl (6.4-8.2)
[2023-02-24 10:47] LABS: BASO % 0.8 % (0-2.0); EOS % 3.9 % (0-4.5); HEMATOCRIT 23.4 % (35.4-49); HEMOGLOBIN 7.5 GM/dL (11.7-16.9); LYMPH % 15.7 % (8-40); MCHC 32.1 g/dl (32.0-35.9); MEAN CELL VOLUME 84.1 fl (80-96); MONO % 10.7 % (3.8-10.2); NEUT % 68.9 % (42.8-82.8); RBC 2.78 M/mm3 (4.00-5.60); RDW 16.6 % (11.9-15.9); WHITE BLOOD COUNT 3.4 K/mm3 (4.0-10.0)
[2023-02-24 10:48] LABS: MEAN PLT VOLUME 12.2 fl (7.5-11.1); PLATELET COUNT 58 10^3/uL (134-434)
[2023-02-24 11:23] LABS: PLATELET ESTIMATE DECREASED
[2023-02-24] MEDS: THIAMINE HCL 200 MG/2 ML VIAL IVPB SCH (11:30)
[2023-02-24] MEDS: MULTIVITAMINS (DAILY MVI) TABLET (FP) PO SCH (11:30)
[2023-02-24] MEDS: NICOTINE 14 MG/24 HOURS TOPICAL PATCH TD SCH ×2 (11:31→11:51)
[2023-02-24] MEDS: FOLIC ACID 1 MG TABLET (FP) PO SCH (11:31)
[2023-02-24] MEDS: AZITHROMYCIN IVPB 500 MG/250 ML BAG IVPB SCH ×2 (11:32→13:11)
[2023-02-24] MEDS: ATOVAQUONE 750 MG/5 ML (UNIT-DOSE PACKAGING) PO SCH ×2 (12:08→21:38)
[2023-02-24] MEDS ORDERED: AZITHROMYCIN 250 MG TABLET PO ONE (13:15)
[2023-02-25] MEDS: NYSTATIN 500,000 UNITS/5 ML SUSPENSION PO SCH ×2 (05:53→11:15)
[2023-02-25 09:51] LABS: BASO % 0.5 % (0-2.0); EOS % 1.5 % (0-4.5); HEMATOCRIT 25.6 % (35.4-49); HEMOGLOBIN 8.3 GM/dL (11.7-16.9); LYMPH % 11.8 % (8-40); MCH 27.4 pg (25.7-33.7); MCHC 32.4 g/dl (32.0-35.9); MEAN CELL VOLUME 84.7 fl (80-96); MEAN PLT VOLUME 12.1 fl (7.5-11.1); MONO % 4.6 % (3.8-10.2); NEUT % 81.6 % (42.8-82.8); PLATELET COUNT 65 10^3/uL (134-434); RBC 3.03 M/mm3 (4.00-5.60); RDW 16.9 % (11.9-15.9); WHITE BLOOD COUNT 3.1 K/mm3 (4.0-10.0)
[2023-02-25 10:05] LABS: POTASSIUM 3.9 mmol/L (3.5-5.1)
[2023-02-25 10:12] LABS: ALBUMIN 2.6 g/dl (3.4-5.0); BLOOD UREA NITROGEN 18.8 mg/dL (7-18); MAGNESIUM 2.3 mg/dL (1.8-2.4)
[2023-02-25 10:17] LABS: BILIRUBIN,TOTAL 0.3 mg/dL (0.2-1); TOT PROT 8.1 g/dl (6.4-8.2)
[2023-02-25] MEDS: NICOTINE 14 MG/24 HOURS TOPICAL PATCH TD SCH (10:21)
[2023-02-25] MEDS: ATOVAQUONE 750 MG/5 ML (UNIT-DOSE PACKAGING) PO SCH (10:22)
[2023-02-25] MEDS: MULTIVITAMINS (DAILY MVI) TABLET (FP) PO SCH (10:22)
[2023-02-25] MEDS: FOLIC ACID 1 MG TABLET (FP) PO SCH (10:22)
[2023-02-25] MEDS: THIAMINE HCL 200 MG/2 ML VIAL IVPB SCH (10:26)
[2023-02-25] MEDS: AZITHROMYCIN IVPB 500 MG/250 ML BAG IVPB SCH (10:26)
[2023-02-25 10:28] VITALS: BP 139/87; PULSE 115; RESP 20; TEMP 98.7
[2023-02-25] MEDS ORDERED: ABACAVIR/DOLUTEGRAVIR/LAMIVUDI (TRIUMEQ) TABLET PO SCH (12:15)
[2023-02-25] MEDS ORDERED: AZITHROMYCIN 250 MG TABLET PO SCH (12:30)
[2023-02-27 18:07] LABS: FREE KAPPA,SERUM 220.9 mg/L (3.3-19.4)
== END 2023-02-25 12:50 | disposition other institution (70) ==
LOC: JER 22:47 → JERBED 02-22 02:06 → UNDOADMOB 02-22 02:06 → INTOOBSV 02-22 02:06 → JERBED 02-22 10:10 → J8W 02-22 18:41
PROVIDERS: ADMIT Internal Medicine; ATTEND Nurse Practitioner Family
DX: D69.6 Thrombocytopenia, unspecified (principal); F10.20 Alcohol dependence, uncomplicated; F19.10 Other psychoactive substance abuse, uncomplicated; B20 Human immunodeficiency virus [HIV] disease; Z91.148 Patient's other noncompliance with medication regimen for other reason; K21.9 Gastro-esophageal reflux disease without esophagitis; F41.8 Other specified anxiety disorders; G89.29 Other chronic pain; B37.0 Candidal stomatitis; I51.7 Cardiomegaly; R79.9 Abnormal finding of blood chemistry, unspecified; M54.50 Low back pain, unspecified; M41.9 Scoliosis, unspecified; R91.1 Solitary pulmonary nodule; Z86.19 Personal history of other infectious and parasitic diseases; L40.9 Psoriasis, unspecified; F17.200 Nicotine dependence, unspecified, uncomplicated; Z91.018 Allergy to other foods
CPT/HCPCS: 0241U-QW; 36415; 71045-TC-FY; 71250-TC; 74177-TC; 80053; 81003; 82728; 82747; 83010; 83605; 83615; 83690; 83735; 83883; 84100; 84155; 84165; 85014; 85025; 85045; 85384; 85610; 85730; 86359; 86360; 86850; 86900; 86901; 87045; 87046; 87086; 87209; 87328; 87329; 87389; 87449; 93005; 93010; 99285-25; G0378; Q9967

== ENCOUNTER 2023-02-25 13:17 | Inpatient (IN) | payer OTHER ==
[2023-02-25 13:49] VITALS: BMI 22.4
[2023-02-25] MEDS ORDERED: IBUPROFEN 600 MG TABLET (FP) PO PRN (14:06)
[2023-02-25] MEDS ORDERED: MAGNESIUM HYDROX 2400MG/30ML ORAL SUSPENSION 30 ML CUP PO PRN (14:06)
[2023-02-25] MEDS ORDERED: NICOTINE POLACRILEX 2 MG GUM BUC PRN (14:06)
[2023-02-25] MEDS ORDERED: METHOCARBAMOL 500 MG TABLET PO PRN (14:06)
[2023-02-25] MEDS ORDERED: LOPERAMIDE HCL 2 MG CAPSULE PO PRN (14:06)
[2023-02-25] MEDS ORDERED: P-EPHED 60MG/TRIPROLIDI 2.5MG TABLET PO PRN (14:06)
[2023-02-25] MEDS ORDERED: MAG HYDROX/AL HYDROX/SIMETH 30 ML UNIT-DOSE CUP PO PRN (14:06)
[2023-02-25] MEDS ORDERED: POLYETHYLENE GLYCOL (HEALTHYLAX) 3350 17 GM PACKET PO PRN (14:06)
[2023-02-25] MEDS ORDERED: IBUPROFEN 400 MG TABLET (FP) PO PRN (14:06)
[2023-02-25] MEDS ORDERED: BENZOCAINE/MENTHOL (CHLORASEPTIC ) LOZENGE MM PRN (14:06)
[2023-02-25] MEDS ORDERED: ACETAMINOPHEN 325 MG TABLET (FP) PO PRN (14:06)
[2023-02-25] MEDS ORDERED: BENZONATATE 200 MG CAPSULE PO PRN (14:06)
[2023-02-25] MEDS ORDERED: guaiFENesin 200 MG/10 ML 10 ML UNIT-DOSE CUPS PO PRN (14:08)
[2023-02-25] MEDS: AZITHROMYCIN 250 MG TABLET PO SCH (18:25)
[2023-02-25] MEDS: NYSTATIN 500,000 UNITS/5 ML SUSPENSION PO SCH ×2 (18:26→23:30)
[2023-02-25] MEDS: THIAMINE HCL 100 MG TABLET (FP) PO SCH (21:38)
[2023-02-25] MEDS: MELATONIN 5 MG TABLETS PO SCH (21:38)
[2023-02-25] MEDS: ATOVAQUONE 750 MG/5 ML (UNIT-DOSE PACKAGING) PO SCH (21:38)
[2023-02-26] MEDS: NYSTATIN 500,000 UNITS/5 ML SUSPENSION PO SCH ×3 (06:34→17:45)
[2023-02-26] MEDS: AZITHROMYCIN 250 MG TABLET PO SCH (10:03)
[2023-02-26] MEDS: ABACAVIR/DOLUTEGRAVIR/LAMIVUDI (TRIUMEQ) TABLET PO SCH (10:04)
[2023-02-26] MEDS: FOLIC ACID 1 MG TABLET (FP) PO SCH (10:04)
[2023-02-26] MEDS: ATOVAQUONE 750 MG/5 ML (UNIT-DOSE PACKAGING) PO SCH ×2 (10:04→21:04)
[2023-02-26] MEDS: MULTIVITAMINS (DAILY MVI) TABLET (FP) PO SCH (10:04)
[2023-02-26] MEDS: CLINDAMYCIN PHOSPHATE 1% TOPICAL GEL 30 GM TUBE TP SCH ×2 (13:00→21:04)
[2023-02-26] MEDS: THIAMINE HCL 100 MG TABLET (FP) PO SCH (21:03)
[2023-02-26] MEDS: MELATONIN 5 MG TABLETS PO SCH (21:03)
[2023-02-27] MEDS: NYSTATIN 500,000 UNITS/5 ML SUSPENSION PO SCH ×4 (00:50→17:17)
[2023-02-27] MEDS: AMMONIUM LACTATE 12% LOTION 225 GM BOTTLE TP PRN ×2 (06:39→21:28)
[2023-02-27] MEDS: COLLOIDAL OATMEAL 1 BAR EACH TP PRN (09:57)
[2023-02-27] MEDS: AZITHROMYCIN 250 MG TABLET PO SCH (09:58)
[2023-02-27] MEDS: CLINDAMYCIN PHOSPHATE 1% TOPICAL GEL 30 GM TUBE TP SCH ×2 (09:58→21:26)
[2023-02-27] MEDS: ATOVAQUONE 750 MG/5 ML (UNIT-DOSE PACKAGING) PO SCH ×2 (09:58→21:26)
[2023-02-27] MEDS: MULTIVITAMINS (DAILY MVI) TABLET (FP) PO SCH (09:58)
[2023-02-27] MEDS: FOLIC ACID 1 MG TABLET (FP) PO SCH (09:58)
[2023-02-27] MEDS: ABACAVIR/DOLUTEGRAVIR/LAMIVUDI (TRIUMEQ) TABLET PO SCH (09:59)
[2023-02-27] MEDS ORDERED: FERROUS SO4 325 MG TABLET (FP) PO SCH (10:00)
[2023-02-27] MEDS: VITAMINS A AND D TOPICAL OINTMENT 60 GM TUBE TP SCH (17:16)
[2023-02-27] MEDS: THIAMINE HCL 100 MG TABLET (FP) PO SCH (21:26)
[2023-02-27] MEDS: MELATONIN 5 MG TABLETS PO SCH (21:26)
[2023-02-28] MEDS: NYSTATIN 500,000 UNITS/5 ML SUSPENSION PO SCH ×5 (00:17→23:28)
[2023-02-28] MEDS: VITAMINS A AND D TOPICAL OINTMENT 60 GM TUBE TP SCH ×5 (00:18→23:28)
[2023-02-28] MEDS: MULTIVITAMINS (DAILY MVI) TABLET (FP) PO SCH (09:36)
[2023-02-28] MEDS: FOLIC ACID 1 MG TABLET (FP) PO SCH (09:36)
[2023-02-28] MEDS: AZITHROMYCIN 250 MG TABLET PO SCH (09:36)
[2023-02-28] MEDS: CLINDAMYCIN PHOSPHATE 1% TOPICAL GEL 30 GM TUBE TP SCH ×2 (09:37→21:12)
[2023-02-28] MEDS: ABACAVIR/DOLUTEGRAVIR/LAMIVUDI (TRIUMEQ) TABLET PO SCH (09:37)
[2023-02-28] MEDS: ATOVAQUONE 750 MG/5 ML (UNIT-DOSE PACKAGING) PO SCH ×2 (09:37→21:12)
[2023-02-28] MEDS: MELATONIN 5 MG TABLETS PO SCH (21:12)
[2023-02-28] MEDS: THIAMINE HCL 100 MG TABLET (FP) PO SCH (21:12)
[2023-03-01] MEDS: NYSTATIN 500,000 UNITS/5 ML SUSPENSION PO SCH (06:05)
[2023-03-01] MEDS: VITAMINS A AND D TOPICAL OINTMENT 60 GM TUBE TP SCH ×3 (06:06→18:50)
[2023-03-01] MEDS: AZITHROMYCIN 250 MG TABLET PO SCH (09:51)
[2023-03-01] MEDS: ABACAVIR/DOLUTEGRAVIR/LAMIVUDI (TRIUMEQ) TABLET PO SCH (09:52)
[2023-03-01] MEDS: MULTIVITAMINS (DAILY MVI) TABLET (FP) PO SCH (09:52)
[2023-03-01] MEDS: FOLIC ACID 1 MG TABLET (FP) PO SCH (09:52)
[2023-03-01] MEDS: ATOVAQUONE 750 MG/5 ML (UNIT-DOSE PACKAGING) PO SCH ×2 (09:52→21:15)
[2023-03-01] MEDS: CLINDAMYCIN PHOSPHATE 1% TOPICAL GEL 30 GM TUBE TP SCH ×2 (09:53→21:15)
[2023-03-01] MEDS: MELATONIN 5 MG TABLETS PO SCH (21:15)
[2023-03-01] MEDS: THIAMINE HCL 100 MG TABLET (FP) PO SCH (21:15)
[2023-03-02] MEDS: VITAMINS A AND D TOPICAL OINTMENT 60 GM TUBE TP SCH ×4 (01:06→18:59)
[2023-03-02] MEDS: FOLIC ACID 1 MG TABLET (FP) PO SCH (09:52)
[2023-03-02] MEDS: ATOVAQUONE 750 MG/5 ML (UNIT-DOSE PACKAGING) PO SCH ×2 (09:52→21:37)
[2023-03-02] MEDS: MULTIVITAMINS (DAILY MVI) TABLET (FP) PO SCH (09:52)
[2023-03-02] MEDS: ABACAVIR/DOLUTEGRAVIR/LAMIVUDI (TRIUMEQ) TABLET PO SCH (09:52)
[2023-03-02] MEDS: COLLOIDAL OATMEAL 1 BAR EACH TP PRN (09:53)
[2023-03-02] MEDS: CLINDAMYCIN PHOSPHATE 1% TOPICAL GEL 30 GM TUBE TP SCH ×2 (09:54→21:37)
[2023-03-02] MEDS: THIAMINE HCL 100 MG TABLET (FP) PO SCH (21:36)
[2023-03-02] MEDS: MELATONIN 5 MG TABLETS PO SCH (21:36)
[2023-03-03] MEDS: VITAMINS A AND D TOPICAL OINTMENT 60 GM TUBE TP SCH ×4 (00:11→17:50)
[2023-03-03] MEDS: ABACAVIR/DOLUTEGRAVIR/LAMIVUDI (TRIUMEQ) TABLET PO SCH (09:37)
[2023-03-03] MEDS: CLINDAMYCIN PHOSPHATE 1% TOPICAL GEL 30 GM TUBE TP SCH ×2 (09:37→21:35)
[2023-03-03] MEDS: FOLIC ACID 1 MG TABLET (FP) PO SCH (09:37)
[2023-03-03] MEDS: MULTIVITAMINS (DAILY MVI) TABLET (FP) PO SCH (09:37)
[2023-03-03] MEDS: ATOVAQUONE 750 MG/5 ML (UNIT-DOSE PACKAGING) PO SCH ×2 (12:11→21:36)
[2023-03-03] MEDS: MELATONIN 5 MG TABLETS PO SCH (21:35)
[2023-03-03] MEDS: THIAMINE HCL 100 MG TABLET (FP) PO SCH (21:35)
[2023-03-04] MEDS: VITAMINS A AND D TOPICAL OINTMENT 60 GM TUBE TP SCH ×4 (00:55→18:45)
[2023-03-04] MEDS: ABACAVIR/DOLUTEGRAVIR/LAMIVUDI (TRIUMEQ) TABLET PO SCH (10:10)
[2023-03-04] MEDS: FOLIC ACID 1 MG TABLET (FP) PO SCH (10:10)
[2023-03-04] MEDS: MULTIVITAMINS (DAILY MVI) TABLET (FP) PO SCH (10:10)
[2023-03-04] MEDS: ATOVAQUONE 750 MG/5 ML (UNIT-DOSE PACKAGING) PO SCH ×2 (10:10→21:16)
[2023-03-04] MEDS: CLINDAMYCIN PHOSPHATE 1% TOPICAL GEL 30 GM TUBE TP SCH ×2 (10:10→21:16)
[2023-03-04] MEDS: THIAMINE HCL 100 MG TABLET (FP) PO SCH (21:15)
[2023-03-04] MEDS: MELATONIN 5 MG TABLETS PO SCH (21:16)
[2023-03-05] MEDS: VITAMINS A AND D TOPICAL OINTMENT 60 GM TUBE TP SCH ×4 (01:25→18:50)
[2023-03-05] MEDS: ATOVAQUONE 750 MG/5 ML (UNIT-DOSE PACKAGING) PO SCH ×2 (10:02→21:17)
[2023-03-05] MEDS: FOLIC ACID 1 MG TABLET (FP) PO SCH (10:02)
[2023-03-05] MEDS: MULTIVITAMINS (DAILY MVI) TABLET (FP) PO SCH (10:03)
[2023-03-05] MEDS: ABACAVIR/DOLUTEGRAVIR/LAMIVUDI (TRIUMEQ) TABLET PO SCH (10:04)
[2023-03-05] MEDS: CLINDAMYCIN PHOSPHATE 1% TOPICAL GEL 30 GM TUBE TP SCH ×2 (10:06→21:18)
[2023-03-05] MEDS: MELATONIN 5 MG TABLETS PO SCH (21:17)
[2023-03-05] MEDS: THIAMINE HCL 100 MG TABLET (FP) PO SCH (21:17)
[2023-03-06] MEDS: VITAMINS A AND D TOPICAL OINTMENT 60 GM TUBE TP SCH ×4 (01:30→19:26)
[2023-03-06] MEDS: FOLIC ACID 1 MG TABLET (FP) PO SCH (10:12)
[2023-03-06] MEDS: ATOVAQUONE 750 MG/5 ML (UNIT-DOSE PACKAGING) PO SCH ×2 (10:13→21:30)
[2023-03-06] MEDS: ABACAVIR/DOLUTEGRAVIR/LAMIVUDI (TRIUMEQ) TABLET PO SCH (10:13)
[2023-03-06] MEDS: MULTIVITAMINS (DAILY MVI) TABLET (FP) PO SCH (10:13)
[2023-03-06] MEDS: CLINDAMYCIN PHOSPHATE 1% TOPICAL GEL 30 GM TUBE TP SCH ×2 (11:43→21:30)
[2023-03-06] MEDS: MELATONIN 5 MG TABLETS PO SCH (21:28)
[2023-03-06] MEDS: THIAMINE HCL 100 MG TABLET (FP) PO SCH (21:29)
[2023-03-07] MEDS: VITAMINS A AND D TOPICAL OINTMENT 60 GM TUBE TP SCH ×4 (00:30→18:55)
[2023-03-07] MEDS: ABACAVIR/DOLUTEGRAVIR/LAMIVUDI (TRIUMEQ) TABLET PO SCH (09:53)
[2023-03-07] MEDS: ATOVAQUONE 750 MG/5 ML (UNIT-DOSE PACKAGING) PO SCH ×2 (09:53→21:20)
[2023-03-07] MEDS: FOLIC ACID 1 MG TABLET (FP) PO SCH (09:53)
[2023-03-07] MEDS: MULTIVITAMINS (DAILY MVI) TABLET (FP) PO SCH (09:54)
[2023-03-07] MEDS: CLINDAMYCIN PHOSPHATE 1% TOPICAL GEL 30 GM TUBE TP SCH ×2 (10:24→21:20)
[2023-03-07] MEDS: MELATONIN 5 MG TABLETS PO SCH (21:20)
[2023-03-07] MEDS: THIAMINE HCL 100 MG TABLET (FP) PO SCH (21:20)
[2023-03-08] MEDS: VITAMINS A AND D TOPICAL OINTMENT 60 GM TUBE TP SCH ×4 (00:30→19:06)
[2023-03-08] MEDS: ATOVAQUONE 750 MG/5 ML (UNIT-DOSE PACKAGING) PO SCH ×2 (09:59→21:20)
[2023-03-08] MEDS: FOLIC ACID 1 MG TABLET (FP) PO SCH (09:59)
[2023-03-08] MEDS: ABACAVIR/DOLUTEGRAVIR/LAMIVUDI (TRIUMEQ) TABLET PO SCH (10:00)
[2023-03-08] MEDS: MULTIVITAMINS (DAILY MVI) TABLET (FP) PO SCH (10:00)
[2023-03-08] MEDS: CLINDAMYCIN PHOSPHATE 1% TOPICAL GEL 30 GM TUBE TP SCH ×2 (10:01→21:20)
[2023-03-08] MEDS: MELATONIN 5 MG TABLETS PO SCH (21:20)
[2023-03-08] MEDS: THIAMINE HCL 100 MG TABLET (FP) PO SCH (21:20)
[2023-03-09] MEDS: VITAMINS A AND D TOPICAL OINTMENT 60 GM TUBE TP SCH ×4 (00:34→18:30)
[2023-03-09] MEDS: COLLOIDAL OATMEAL 1 BAR EACH TP PRN (06:54)
[2023-03-09] MEDS: ABACAVIR/DOLUTEGRAVIR/LAMIVUDI (TRIUMEQ) TABLET PO SCH (09:51)
[2023-03-09] MEDS: ATOVAQUONE 750 MG/5 ML (UNIT-DOSE PACKAGING) PO SCH ×2 (09:51→21:19)
[2023-03-09] MEDS: FOLIC ACID 1 MG TABLET (FP) PO SCH (09:51)
[2023-03-09] MEDS: CLINDAMYCIN PHOSPHATE 1% TOPICAL GEL 30 GM TUBE TP SCH ×2 (09:51→21:20)
[2023-03-09] MEDS: MULTIVITAMINS (DAILY MVI) TABLET (FP) PO SCH (09:51)
[2023-03-09] MEDS: THIAMINE HCL 100 MG TABLET (FP) PO SCH (21:19)
[2023-03-09] MEDS: MELATONIN 5 MG TABLETS PO SCH (21:19)
[2023-03-10] MEDS: VITAMINS A AND D TOPICAL OINTMENT 60 GM TUBE TP SCH ×4 (01:11→18:52)
[2023-03-10] MEDS: AMMONIUM LACTATE 12% LOTION 225 GM BOTTLE TP PRN (05:57)
[2023-03-10] MEDS: FOLIC ACID 1 MG TABLET (FP) PO SCH (09:34)
[2023-03-10] MEDS: ABACAVIR/DOLUTEGRAVIR/LAMIVUDI (TRIUMEQ) TABLET PO SCH (09:34)
[2023-03-10] MEDS: ATOVAQUONE 750 MG/5 ML (UNIT-DOSE PACKAGING) PO SCH ×2 (09:34→21:17)
[2023-03-10] MEDS: MULTIVITAMINS (DAILY MVI) TABLET (FP) PO SCH (09:34)
[2023-03-10] MEDS: CLINDAMYCIN PHOSPHATE 1% TOPICAL GEL 30 GM TUBE TP SCH ×2 (09:34→21:17)
[2023-03-10] MEDS: MELATONIN 5 MG TABLETS PO SCH (21:17)
[2023-03-10] MEDS: THIAMINE HCL 100 MG TABLET (FP) PO SCH (21:17)
[2023-03-11] MEDS: VITAMINS A AND D TOPICAL OINTMENT 60 GM TUBE TP SCH ×2 (00:12→06:18)
[2023-03-11 06:52] VITALS: BP 139/89; PULSE 101; RESP 18; TEMP 98.9
[2023-03-11] MEDS: MULTIVITAMINS (DAILY MVI) TABLET (FP) PO SCH (09:21)
[2023-03-11] MEDS: ABACAVIR/DOLUTEGRAVIR/LAMIVUDI (TRIUMEQ) TABLET PO SCH (09:21)
[2023-03-11] MEDS: FOLIC ACID 1 MG TABLET (FP) PO SCH (09:21)
[2023-03-11] MEDS: ATOVAQUONE 750 MG/5 ML (UNIT-DOSE PACKAGING) PO SCH (09:21)
== END 2023-03-11 09:52 | disposition home or self-care (01) | DRG 772 ==
LOC: YASAS 13:17 → Y3W 14:15
PROVIDERS: ADMIT Allergy & Immunology; ATTEND Psychiatry & Neurology Pain Medicine
PROC: HZ42ZZZ Group Counseling for Substance Abuse Treatment, Cognitive-Behavioral (ICD-10-PCS; principal; 2023-02-25)
DX: F10.20 Alcohol dependence, uncomplicated (principal); F14.20 Cocaine dependence, uncomplicated; F17.210 Nicotine dependence, cigarettes, uncomplicated; F41.9 Anxiety disorder, unspecified; F32.A Depression, unspecified; B20 Human immunodeficiency virus [HIV] disease; B37.0 Candidal stomatitis; D64.9 Anemia, unspecified; I10 Essential (primary) hypertension; K21.9 Gastro-esophageal reflux disease without esophagitis; M41.9 Scoliosis, unspecified; M54.50 Low back pain, unspecified; G89.29 Other chronic pain; L02.414 Cutaneous abscess of left upper limb; L85.3 Xerosis cutis
CPT/HCPCS: 87635

== ENCOUNTER 2024-02-01 09:26 | Inpatient (IN) | payer OTHER ==
[2024-02-01 10:25] VITALS: BMI 21.8
[2024-02-01] MEDS ORDERED: chlordiazePOXIDE HCL 25 MG CAPSULE PO PRN (11:40)
[2024-02-01] MEDS ORDERED: IBUPROFEN 400 MG TABLET (FP) PO PRN (11:41)
[2024-02-01] MEDS ORDERED: NALOXONE (NARCAN) HCL 4 MG/0.1 ML SPRAY NS PRN (11:41)
[2024-02-01] MEDS ORDERED: hydrOXYzine PAMOATE 25 MG CAPSULE (FP) PO PRN (11:41)
[2024-02-01] MEDS ORDERED: DICYCLOMINE HCL 10 MG CAPSULE PO PRN (11:41)
[2024-02-01] MEDS ORDERED: ACETAMINOPHEN 325 MG TABLET (FP) PO PRN (11:41)
[2024-02-01] MEDS ORDERED: MAGNESIUM HYDROX 2400MG/30ML ORAL SUSPENSION 30 ML CUP PO PRN (11:41)
[2024-02-01] MEDS ORDERED: ONDANSETRON *ODT* 4 MG TABLET SL PRN (11:41)
[2024-02-01] MEDS ORDERED: BISMUTH SUBSALICYLATE 524 MG/30 ML PO PRN (11:41)
[2024-02-01] MEDS ORDERED: NALOXONE HCL 0.4 MG/ML VIAL IM PRN (11:41)
[2024-02-01] MEDS ORDERED: BENZONATATE 200 MG CAPSULE PO PRN (11:41)
[2024-02-01] MEDS ORDERED: IBUPROFEN 600 MG TABLET (FP) PO PRN (11:41)
[2024-02-01] MEDS ORDERED: POLYETHYLENE GLYCOL (HEALTHYLAX) 3350 17 GM PACKET PO PRN (11:41)
[2024-02-01] MEDS ORDERED: MAG HYDROX/AL HYDROX/SIMETH 30 ML UNIT-DOSE CUP PO PRN (11:41)
[2024-02-01] MEDS ORDERED: LOPERAMIDE HCL 2 MG CAPSULE PO PRN (11:41)
[2024-02-01] MEDS ORDERED: amLODIPine BESYLATE 5 MG TABLET (FP) ONE (11:46)
[2024-02-01] MEDS: amLODIPine BESYLATE 5 MG TABLET (FP) PO SCH (11:47)
[2024-02-01] MEDS: chlordiazePOXIDE HCL 25 MG CAPSULE PO SCH (17:21)
[2024-02-01] MEDS: THIAMINE 100 MG TABLET PO SCH (22:42)
[2024-02-01] MEDS: MELATONIN 5 MG TABLETS PO SCH (22:42)
[2024-02-02] MEDS: guaiFENesin 600 MG TABLET.ER (FP) PO PRN (02:41)
[2024-02-02] MEDS: BENZOCAINE/MENTHOL (CHLORASEPTIC ) LOZENGE MM PRN (05:58)
[2024-02-02 10:22] LABS: HEMATOCRIT 24.7 % (35.4-49); HEMOGLOBIN 8.5 GM/dL (11.7-16.9); MCH 31.1 pg (25.7-33.7); MCHC 34.4 g/dl (32.0-35.9); MEAN CELL VOLUME 90.2 fl (80-96); RBC 2.73 M/mm3 (4.00-5.60); RDW 17.6 % (11.9-15.9)
[2024-02-02 10:25] LABS: CHLORIDE 108 mmol/L (98-107); POTASSIUM 4.4 mmol/L (3.5-5.1); SODIUM 138 mmol/L (136-145)
[2024-02-02 10:36] LABS: ALBUMIN 2.8 g/dl (3.4-5.0); ANION GAP 4 mmol/L (4-13); BLOOD UREA NITROGEN 18.6 mg/dL (7-18); CO2 26 mmol/L (21-32); GLUCOSE,RANDOM 94 mg/dL (74-106)
[2024-02-02] MEDS: PRENATAL VITAMINS W/ FOLIC ACID TABLET (FP) PO SCH (10:36)
[2024-02-02] MEDS: SULFAMETHOXAZOLE/TRIMETHOPRIM 800MG/160MG D.S. TABLET PO SCH (10:36)
[2024-02-02 10:39] LABS: SGPT/ALT 31 U/L (13-61)
[2024-02-02 10:40] LABS: CREATININE 0.9 mg/dL (0.55-1.3); SGOT/AST 44 U/L (15-37)
[2024-02-02 10:41] LABS: BILIRUBIN,TOTAL 0.4 mg/dL (0.2-1); TOT PROT 7.9 g/dl (6.4-8.2)
[2024-02-02 10:42] LABS: ALK PHOS 59 U/L (45-117)
[2024-02-02 10:43] LABS: MEAN PLT VOLUME 9.8 fl (7.5-11.1)
[2024-02-02 10:45] LABS: PLATELET COUNT 27 10^3/uL (134-434)
[2024-02-02] MEDS: ABACAVIR/DOLUTEGRAVIR/LAMIVUDI (TRIUMEQ) TABLET PO SCH (13:12)
[2024-02-02 20:59] LABS: EPI CELLS 15 /uL (0-25.1); HYALINE CASTS 2 /uL (0-3.1); PH,URINE 6.5 (5.0-8.0); URINE APPEARANCE CLEAR; URINE BACTERIA 61 /uL (0-1359); URINE BILIRUBIN NEGATIVE (NEGATIVE); URINE COLOR YELLOW; URINE GLUCOSE (UA) NEGATIVE (NEGATIVE); URINE KETONE NEGATIVE (NEGATIVE); URINE LEUK ESTERASE NEGATIVE (NEGATIVE); URINE NITRITE NEGATIVE (NEGATIVE); URINE PROTEIN 2+ (NEGATIVE); URINE RBC 101 /uL (0-23.9); URINE UROBILINOGEN 0.2 mg/dL (0.2-1.0); URINE WBC 34 /uL (0-25.8)
[2024-02-02] MEDS: VITAMINS A AND D TOPICAL OINTMENT TP SCH (21:11)
[2024-02-02] MEDS: VITAMINS A AND D TOPICAL OINTMENT TP PRN (22:34)
[2024-02-03] MEDS: chlordiazePOXIDE HCL 25 MG CAPSULE PO SCH (05:39)
[2024-02-03] MEDS: METHOCARBAMOL 500 MG TABLET PO PRN (10:42)
[2024-02-03] MEDS ORDERED: COLLOIDAL OATMEAL 1 BAR EACH TP PRN (11:08)
[2024-02-03 11:13] LABS: BASO % 1.1 % (0-2.0); EOS % 17.4 % (0-4.5); HEMATOCRIT 25.9 % (35.4-49); HEMOGLOBIN 8.8 GM/dL (11.7-16.9); LYMPH % 23.5 % (8-40); MCH 31.7 pg (25.7-33.7); MEAN CELL VOLUME 93.2 fl (80-96); MEAN PLT VOLUME 9.2 fl (7.5-11.1); MONO % 12.8 % (3.8-10.2); NEUT % 45.2 % (42.8-82.8); RBC 2.78 M/mm3 (4.00-5.60); RDW 18.2 % (11.9-15.9); WHITE BLOOD COUNT 2.4 K/mm3 (4.0-10.0)
[2024-02-03 11:21] LABS: POTASSIUM 4.3 mmol/L (3.5-5.1)
[2024-02-03 11:24] LABS: BLOOD UREA NITROGEN 28.3 mg/dL (7-18)
[2024-02-03 11:25] LABS: CALCIUM 8.6 mg/dL (8.5-10.1)
[2024-02-03 11:27] LABS: CREATININE 1.1 mg/dL (0.55-1.3)
[2024-02-03] MEDS: KETOCONAZOLE 2 % SHAMPOO 120 ML BOTTLE TP SCH (11:35)
[2024-02-03 11:44] LABS: PLATELET COUNT 44 10^3/uL (134-434)
[2024-02-04] MEDS ORDERED: chlordiazePOXIDE HCL 10 MG CAPSULE PO PRN
[2024-02-04] MEDS: chlordiazePOXIDE HCL 10 MG CAPSULE PO SCH (05:36)
[2024-02-04] MEDS: guaiFENesin 600 MG TABLET.ER (FP) PO SCH (10:30)
[2024-02-05] MEDS: chlordiazePOXIDE HCL 10 MG CAPSULE PO SCH (05:39)
[2024-02-05 08:46] LABS: HEMOGLOBIN 8.4 GM/dL (11.7-16.9); MCHC 33.6 g/dl (32.0-35.9); MEAN CELL VOLUME 89.4 fl (80-96); MEAN PLT VOLUME 11.7 fl (7.5-11.1); PLATELET COUNT 83 10^3/uL (134-434); RDW 17.8 % (11.9-15.9); WHITE BLOOD COUNT 2.8 K/mm3 (4.0-10.0)
[2024-02-05] MEDS: FOLIC ACID 1 MG TABLET (FP) PO SCH (09:44)
[2024-02-05] MEDS: FERROUS SO4 325 MG TABLET (FP) PO SCH (13:29)
[2024-02-05 17:13] VITALS: RESP 18
[2024-02-06] MEDS: chlordiazePOXIDE HCL 10 MG CAPSULE PO ONE (05:45)
[2024-02-06 09:17] VITALS: BP 136/90; PULSE 80; TEMP 97.5
== END 2024-02-06 09:42 | disposition home or self-care (01) | DRG 774 ==
LOC: YASAS 09:26 → Y3N 12:54
PROVIDERS: ADMIT Allergy & Immunology; ATTEND Surgery
PROC: HZ2ZZZZ Detoxification Services for Substance Abuse Treatment (ICD-10-PCS; principal; 2024-02-01)
DX: F14.20 Cocaine dependence, uncomplicated (principal); F17.210 Nicotine dependence, cigarettes, uncomplicated; F19.982 Other psychoactive substance use, unspecified with psychoactive substance-induced sleep disorder; F31.9 Bipolar disorder, unspecified; I10 Essential (primary) hypertension; B20 Human immunodeficiency virus [HIV] disease; D69.6 Thrombocytopenia, unspecified; R05.9 Cough, unspecified; E86.0 Dehydration; Z91.51 Personal history of suicidal behavior; Z56.0 Unemployment, unspecified
CPT/HCPCS: 0241U-QW; 36415; 71046-TC-FY; 80048; 80053; 80305; 80307; 81003; 85025; 85027; 86359; 86360; 86780; 87811; 93005; 93010